=== PATIENT | female | born 1985 | race Caucasian/White ===

== ENCOUNTER 2020-07-16 14:33 | Emergency (ER) | payer MEDICAID, SELFPAY ==
[2020-07-16 15:00] VITALS: BP 158/95; PULSE 75; RESP 18; TEMP 36.8; O2SAT 99; BMI 57.4
--- NOTE | 2020-07-16 15:13 | HMH.EDUTC ---
[facility] Clinical Impression: Encounter for laboratory testing for COVID-19 virus, Exposure to COVID-19 virus Disposition: Home, Self-Care Condition on Discharge: Good Instructions: Preventing the Spread of Coronavirus Discharge Instructions Additional Instructions: *Monitor Temp, Over the counter Motrin or Tylenol as directed/as needed Tylenol every 4 hours and Motrin every 6 hours (as long as your family doctor has told you that you can take it) for fever or pain. and straight to ER if unable to lower temp less than 101.0 after medication given *Warm salt water gargles may help to soothe the throat *Throat Lozenges *Warm fluids like tea with honey may help to soothe the throat *Sleep elevated *Humidifier/Vaporizer Follow up IMMEDIATELY for new or worsening symptoms or no Noticeable improvement over the next 48-72 hours. 911 for difficulty breathing or swallowing You was tested for today for COVID19 your test result should be back in the next 24-48 hours, you may call back on Monday to see if your test results are back and the result You was given a handout with instructions for Self Quarantine and Self isolation for while you wait on test results and what to do if they are positive Referrals: David Ho [Primary Care Provider] - As needed Forms: Work/School Release Time of Disposition: 15:14 Medical Decision Making - Davy Inquiry Pt receiving controlled substance: No Davy was queried for this patient: No Vital Signs: 07/16/20 15:00 Temperature 98.2 F Temperature Source Oral Pulse Rate [Right Brachial] 75 Respiratory Rate 18 Blood Pressure [Right Arm] 158/95 H Blood Pressure Mean [Right Arm] 116 Blood Pressure Source [Right Arm] Automatic Cuff Blood Pressure Position [Right Arm] Sitting 02 Sat by Pulse Oximetry 99 Oxygen Delivery Method Room Air Orders (Tests/Meds): ORDERS Category Date Time Status Covid-19 Nasal PCR Sendout [facility] 07/16/20 14:43 Ordered [facility] [place] - General Stated complaint: Covid test Time Seen by Provider: 07/16/20 15:13 Mode of Arrival: Ambulatory Source of Information: Patient Limitations: No Limitations Description of Symptoms (Recalled from Triage Doc. by RN): PATIENT REQUESTING COVID TEST D/T EXPOSURE; C/O COUGH HEENT Symptoms (Recalled from RN notes): No Resp Symptoms (Recalled from RN notes): Yes Skin Symptoms (Recalled from RN notes): No MS Symptoms (Recalled from RN notes): No Functional Status (Recalled from RN notes): WNL - History of Present Illness Provider Complaint: Patient state that she was around her sister in law that recently tested positive for COVID and it was recommended by the Health Dept to quarantine and her work required her to get tested States that she has had a little cough but no other symtpoms - Related Data Home Medications Medication Instructions Recorded Confirmed Amlodipine Besylate [Amlodipine 10 mg PO DAILY 09/22/19 10/12/19 10mg Tab] Hydroxychloroquine Sulfate 400 mg PO DAILY 09/22/19 10/12/19 [Plaquenil 200mg tablet] Sertraline HCl [Zoloft] 150 mg PO DAILY 09/22/19 10/12/19 lisinopriL [Lisinopril 5mg 5 mg PO DAILY 09/22/19 10/12/19 Tablet] Previous Rx's Medication Instructions Recorded Oseltamivir Phosphate [Tamiflu 75 mg PO BID #10 cap 10/12/19 75mg Capsule] Allergies Allergy/AdvReac Type Severity Reaction Status Date / Time morphine Allergy Verified 10/12/19 13:58 - Worker's Comp Is this a Worker's Comp case?: No [facility] History - Hepatitis A Screen Drug use history?: No High risk sexual behaviors?: No History of sexually transmitted infection?: No Currently employed?: No Childcare worker?: No Do you have indoor plumbing?: Yes Do you have electricity?: Yes Attestation statement:: This patient has been screened for Hepatitis A risk factors. Medical History: Denies:: Diabetes Mellitus Type 1, Diabetes Mellitus Type 2 - Social History Smo
[2020-07-16 15:16] VITALS: BP 158/95; PULSE 75; RESP 18; TEMP 36.8; O2SAT 99
[2020-07-16 23:32] LABS: Adenovirus,PCR Not Detected (NotDetected); Bordetella Pertussis Not Detected (NotDetected); Chlamydophila Pneumoniae, PCR Not Detected (NotDetected); Coronavirus 19, PCR Not Detected (NotDetected); Coronavirus 229E Not Detected (NotDetected); Coronavirus NL63 Not Detected (NotDetected); Coronavirus OC43 Not Detected (NotDetected); Coronovirus HKU1,PCR Not Detected (NotDetected); Human Metapneumovirus Not Detected (NotDetected); Influenza A, PCR Not Detected (NotDetected); Influenza AH1, 2009 Not Detected (NotDetected); Influenza AH1, PCR Not Detected (NotDetected); Influenza AH3,PCR Not Detected (NotDetected); Influenza B, PCR Not Detected (NotDetected); Mycoplasma Pneumoniae, PCR Not Detected (NotDetected); Parainfluenza 1, PCR Not Detected (NotDetected); Parainfluenza 2, PCR Not Detected (NotDetected); Parainfluenza 3, PCR Not Detected (NotDetected); Parainfluenza 4, PCR Not Detected (NotDetected); Respiratory Syncytial Virus Not Detected (NotDetected); Rhinovirus/Enterovirus Not Detected (NotDetected)
== END 2020-07-16 15:20 | disposition home or self-care (01) ==
PROVIDERS: Emergency Provider Nurse Practitioner; PCP Pediatrics
DX: Z20.828 Contact with and (suspected) exposure to other viral communicable diseases (principal); R05 Cough; I10 Essential (primary) hypertension; J45.909 Unspecified asthma, uncomplicated; Z79.899 Other long term (current) drug therapy; Z88.5 Allergy status to narcotic agent
CPT/HCPCS: 87581; 87633; 87798; 99201; U0003

== ENCOUNTER 2020-09-06 15:35 | Emergency (ER) | payer MEDICAID, SELFPAY ==
[2020-09-06 16:00] VITALS: BP 136/88; PULSE 85; RESP 18; TEMP 36.7; O2SAT 100; BMI 57.3
--- NOTE | 2020-09-06 16:16 | HMH.EDUTC ---
[facility] [place]ression: Lupus Right otitis media Qualifiers: Otitis media type: suppurative Chronicity: acute Recurrence: non-recurrent Spontaneous tympanic membrane rupture: without spontaneous rupture Qualified Code(s): H66.001 - Acute suppurative otitis media without spontaneous rupture of ear drum, right ear Disposition: Home, Self-Care Condition on Discharge: Good Instructions: DI for Systemic Lupus Erythematosus Prescriptions: Amoxicillin [Amoxicillin 875MG Tab] 875 mg PO Q12H #20 tab Transmission Status: Pending to [facility] # predniSONE [Prednisone 20mg Tab] 20 mg PO BID 5 Days #10 tab Transmission Status: Pending to [employer] [employer] # Referrals: David Ho [Primary Care Provider] - Time of Disposition: 16:24 Medical Decision Making - Davy Inquiry Pt receiving controlled substance: No Vital Signs: 09/06/20 16:00 Temperature 98.0 F Temperature Source Oral Pulse Rate [Radial] 85 Respiratory Rate 18 Blood Pressure [Right Arm] 136/88 Blood Pressure Mean [Right Arm] 104 Blood Pressure Source [Right Arm] Automatic Cuff Blood Pressure Position [Right Arm] Sitting 02 Sat by Pulse Oximetry 100 Oxygen Delivery Method Room Air [facility] [place] - General Stated complaint: R ear/face pain Time Seen by Provider: 09/06/20 16:16 Mode of Arrival: Ambulatory Source of Information: Patient Limitations: No Limitations Description of Symptoms (Recalled from Triage Doc. by RN): EARS HURTING AND RIGHT SIDE OF FACE HEENT Symptoms (Recalled from RN notes): Yes Resp Symptoms (Recalled from RN notes): No Skin Symptoms (Recalled from RN notes): No MS Symptoms (Recalled from RN notes): No Functional Status (Recalled from RN notes): WNL - History of Present Illness Provider Complaint: Right ear pain radiating into face X 3 days. No fever. No rash. H/O Lupus. Has sores in her mouth and nose and hands are swollen and painful. Some pain with opening of jaw. Onset (ago): day(s) (3) Location: face Relieving factors: none Exacerbating factors: none Associated symptoms: denies other symptoms Treatments prior to arrival: none - Related Data Home Medications Medication Instructions Recorded Confirmed Amlodipine Besylate [Amlodipine 10 mg PO DAILY 09/22/19 10/12/19 10mg Tab] Hydroxychloroquine Sulfate 400 mg PO DAILY 09/22/19 10/12/19 [Plaquenil 200mg tablet] Sertraline HCl [Zoloft] 150 mg PO DAILY 09/22/19 10/12/19 lisinopriL [Lisinopril 5mg 5 mg PO DAILY 09/22/19 10/12/19 Tablet] Previous Rx's Medication Instructions Recorded Oseltamivir Phosphate [Tamiflu 75 mg PO BID #10 cap 10/12/19 75mg Capsule] Amoxicillin [Amoxicillin 875MG 875 mg PO Q12H #20 tab 09/06/20 Tab] predniSONE [Prednisone 20mg 20 mg PO BID 5 Days #10 tab 09/06/20 Tab] Allergies Allergy/AdvReac Type Severity Reaction Status Date / Time morphine Allergy Verified 10/12/19 13:58 - Worker's Comp Is this a Worker's Comp case?: No [facility] History - Hepatitis A Screen Drug use history?: No High risk sexual behaviors?: No History of sexually transmitted infection?: No Currently employed?: No Childcare worker?: No Do you have indoor plumbing?: Yes Do you have electricity?: Yes Attestation statement:: This patient has been screened for Hepatitis A risk factors. I have reviewed the patient's past medical history: Yes Medical History: Denies:: Diabetes Mellitus Type 1, Diabetes Mellitus Type 2 - Social History Smoking Status: Never smoker Alcohol Intake: never Occupational Status: other Housing: house Household Members: spouse ROS Obtained: Yes All systems reviewed & no additional complaints - ENT Ears, Nose, Mouth, and Throat: Reports otalgia, Reports mouth lesions - Musculoskeletal Musculoskeletal: Reports stiffness Physical Exam - General General appearance: alert, in no apparent distress - Head Head exam: normocephalic
[2020-09-06 16:30] VITALS: BP 136/88; PULSE 85; RESP 18; TEMP 36.7; O2SAT 100
== END 2020-09-06 16:31 | disposition home or self-care (01) ==
PROVIDERS: Emergency Provider Physician Assistant; PCP Pediatrics
DX: H66.001 Acute suppurative otitis media without spontaneous rupture of ear drum, right ear (principal); M32.9 Systemic lupus erythematosus, unspecified; I10 Essential (primary) hypertension; Z79.899 Other long term (current) drug therapy
CPT/HCPCS: 99201

== ENCOUNTER 2020-11-30 04:07 | Emergency (ER) | payer MEDICAID, SELFPAY ==
[2020-11-30] VITALS (8 sets, daily range): BP systolic 143–178; BP diastolic 77–95; PULSE 63–82; RESP 16–18; TEMP 36.8; O2SAT 97–100; BMI 57.2
--- NOTE | 2020-11-30 04:25 | ECG_ITS ---
APPROVED REPORT Exam: Resting ECG HR:73 bpm ECG Measurements Heart Rate 73 AXES SC 148 P 52 QRSd 100 QRS 24 QT 410 T 3 QTc 451 Conclusion Normal sinus rhythm Low voltage QRS Borderline ECG Electronically signed by : Perez Colon, 11/30/2020 17:21:23
--- NOTE | 2020-11-30 04:33 | CT_ITS ---
PROCEDURE: CT ANGIO CHEST CLINCIAL INDICATION: Chest pain, right upper quadrant pain COMPARISON: No exams were available for comparison TECHNIQUE: IV Contrast: 70ML Isovue 370 Axial images obtained with sagittal and coronal reformats. All CT scans at the facility use one or more dose reduction, viz: automated exposure control, ma/kV adjustment per patient size (including targeted exams where dose is matched to indication, i.e. head), or iterative reconstruction technique. FINDINGS: HEART AND MEDIASTINAL STRUCTURES: No evidence of pulmonary embolus, aortic aneurysm, or aortic dissection. LUNGS AND PLEURAL SPACES: 3 mm left lower lobe nodule image 49. Scattered calcified punctate nodular opacities. 3 mm noncalcified nodule right perihilar region image 31. No lobar consolidation or collapse. BONY STRUCTURES: Kyphosis of the thoracic with wedge contour lower thoracic spine vertebral bodies which may be chronic. UPPER ABDOMEN: Prior gastric bypass surgery and cholecystectomy. ADDITIONAL FINDINGS: No other significant abnormalities. IMPRESSION: No evidence of pulmonary embolus, aortic aneurysm, or aortic dissection. Scattered calcified and noncalcified pulmonary nodules which may be related to old granulomatous disease. Stability may be confirmed with follow-up Dictated by: Raji Romero MD 11/30/2020 06:38 Raji Romero MD in [facility] 11/30/2020 06:38
--- NOTE | 2020-11-30 04:33 | CT_ITS ---
PROCEDURE: CT ABDOMEN PELVIS W CON CLINICAL INDICATION: RUQ pain COMPARISON: No exams were available for comparison TECHNIQUE: IV Contrast: 75ML Isovue 370 Oral Contrast None Axial images obtained with sagittal and coronal reformats. All CT scans at the facility use one or more dose reduction, viz: automated exposure control, ma/kV adjustment per patient size (including targeted exams where dose is matched to indication, i.e. head), or iterative reconstruction technique. FINDINGS: LOWER THORAX: No acute finding ABDOMEN & PELVIS: Evaluation limited secondary to patient's body habitus. Status post prior gastric bypass surgery. Prior cholecystectomy. Prominent right hepatic lobe measuring 24 cm longitudinal. Mild splenomegaly at 14 cm. Nodular involvement of the left adrenal gland nonspecific measuring 17 mm. No renal or ureteral calculi. No hydronephrosis. There are few mildly prominent retroperitoneal lymph nodes and small mesenteric lymph nodes. These are nonspecific. No evidence of appendicitis. There is an 8 cm right ovarian cyst. No free pelvic fluid. Postsurgical changes anterior abdominal wall IMPRESSION: 1. 8 cm cystic right adnexal mass suggestive of ovarian cyst. Pelvic ultrasound may provide further evaluation. 2. Hepatosplenomegaly 3. Other nonacute findings as described above. Dictated by: Raji Romero MD 11/30/2020 06:45 Raji Romero MD in [facility] 11/30/2020 06:45
--- NOTE | 2020-11-30 04:33 | XR_ITS ---
PROCEDURE: XR CHEST 2V CLINICAL HISTORY: chest pain COMPARISON: No exams were available for comparison FINDINGS: The cardiomediastinal silhouette and pulmonary vascularity are within normal limits. The lungs are clear without infiltrates, suspicious nodules, or pleural effusions. Thoracic kyphosis with degenerative change in the midthoracic spine. Minimal wedge contour involves the lower thoracic spine vertebral bodies and may be acquired. IMPRESSION: No acute findings. Dictated by: Raji Romero MD 11/30/2020 05:57 Raji Romero MD in [facility] 11/30/2020 05:57
--- NOTE | 2020-11-30 04:36 | CT_ITS ---
PROCEDURE: CT SINUS WO CON CLINICAL HISTORY: right face pain COMPARISON: No exams were available for comparison TECHNIQUE: Axial images obtained with sagittal and coronal reformats. All CT scans at the facility use one or more dose reduction, viz: automated exposure control, ma/kV adjustment per patient size (including targeted exams where dose is matched to indication, i.e. head), or iterative reconstruction technique. FINDINGS: Mucosal thickening is present in the right maxillary sinus. There is adjacent soft tissue gas in the region the right middle turbinate. This could be related to trapped gas and mucus. Gas within an infected turbinates is an additional consideration. Direct visualization may provide further evaluation. There is a sclerotic focus in the right maxilla inferior to the right maxillary sinus possibly related to an impacted tooth. There is mild rightward nasal septal deviation. No other significant anomalies apparent. IMPRESSION: 1. Right maxillary sinus inflammatory changes with mucosal thickening. 2. Soft tissue gas in the region of the right middle turbinate. This could be related to trapped gas and mucus. Gas within an infected turbinates is an additional consideration. Direct visualization may provide further evaluation. 3. There is a sclerotic focus in the right maxilla inferior to the right maxillary sinus possibly related to an impacted tooth. 4. There is mild rightward nasal septal deviation Dictated by: Raji Romero MD 11/30/2020 06:51 Raji Romero MD in [facility] 11/30/2020 06:52
[2020-11-30 04:42] LABS: Basophils % 0.6 % (0.1-2.0); Eosinophils # 0.2 K/mm3 (0.0-0.4); Eosinophils % 2.3 % (0.1-12.0); Hematocrit 37.4 % (37.0-47.0); Hemoglobin 12.2 g/dL (12.2-16.2); Lymphocytes # 1.9 K/mm3 (0.7-4.5); Lymphocytes % 27.7 % (10-50); Mean Corpuscular HGB Conc 32.7 g/dL (31.8-35.4); Mean Corpuscular Hemoglobin 28.7 pg (27.0-31.2); Mean Corpuscular Volume 87.7 fl (81-99); Mean Platelet Volume 7.7 fl (7.4-10.4); Monocytes # 0.4 K/mm3 (0.1-1.0); Monocytes % 6.4 % (1.7-9.3); Neutrophils # 4.3 K/mm3 (1.8-7.8); Neutrophils % 62.9 % (37.0-80.0); Platelet Count 289 K/mm3 (142-424); Red Blood Count 4.27 M/mm3 (4.20-5.40); Red Cell Distribution Width 13.9 % (11.5-17.5); White Blood Count 6.8 K/mm3 (4.8-10.8)
[2020-11-30 04:43] LABS: Microscopic, Urine URINE MICROSCOPIC (MICROSCOPIC)
[2020-11-30 04:49] LABS: Alanine Aminotransferase 20 U/L (12-78); Albumin Level 3.8 g/dl (3.5-5.0); Albumin/Globulin Ratio 1.3 (1.1-1.8); Alkaline Phosphatase 113 U/L (38-126); Amylase 60 U/L (30-110); Anion Gap 7.6 mEq/L (5-15); Aspartate Amino Transferase 23 U/L (14-36); Bilirubin,Total 0.3 mg/dl (0.2-1.3); Blood Urea Nitrogen 18 mg/dl (7-17); Calcium 8.6 mg/dl (8.4-10.2); Carbon Dioxide 25 mmol/L (22.0-30.0); Chloride 109 mmol/L (98-107); Creatinine Clearance Estimated 95 mL/min (50-200); Estimated Glomerular Filt Rate 81 ml/min (>60); GFR (African American) 98 ML/MIN (>60); Globulin 2.9 g/dL (1.3-3.2); Glucose 90 mg/dl (74-100); Lipase 94 U/L (23-300); Potassium 3.6 mmoL/L (3.5-5.1); Sodium 138 mmol/L (136-145); Total Protein,Serum 6.7 g/dl (6.3-8.2)
[2020-11-30 04:53] LABS: Appearance,Urine CLEAR (Clear); Bilirubin,Urine Negative (Negative); Blood, Urine Negative (Negative); Color,Urine YELLOW (Yellow); Glucose,Urine (UA) Negative (Negative); Ketones,Urine Negative (Negative); Leukocyte Esterase,Urine Negative (Negative); Nitrate,Urine Negative (Negative); Protein,Urine Negative (Negative); Urobilinogen,Urine 0.2 EU/dl (0.2)
[2020-11-30 04:54] LABS: C-Reactive Protein 3.7 mg/L (0-4)
[2020-11-30 04:55] LABS: Adenovirus,PCR Not Detected (NotDetected); Bordetella Pertussis Not Detected (NotDetected); Chlamydophila Pneumoniae, PCR Not Detected (NotDetected); Coronavirus 19, PCR Not Detected (NotDetected); Coronavirus 229E Not Detected (NotDetected); Coronavirus NL63 Not Detected (NotDetected); Coronavirus OC43 Not Detected (NotDetected); Coronovirus HKU1,PCR Not Detected (NotDetected); Human Metapneumovirus Not Detected (NotDetected); Influenza A, PCR Not Detected (NotDetected); Influenza AH1, 2009 Not Detected (NotDetected); Influenza AH1, PCR Not Detected (NotDetected); Influenza AH3,PCR Not Detected (NotDetected); Influenza B, PCR Not Detected (NotDetected); Mycoplasma Pneumoniae, PCR Not Detected (NotDetected); Parainfluenza 1, PCR Not Detected (NotDetected); Parainfluenza 2, PCR Not Detected (NotDetected); Parainfluenza 3, PCR Not Detected (NotDetected); Parainfluenza 4, PCR Not Detected (NotDetected); Respiratory Syncytial Virus Not Detected (NotDetected)
--- NOTE | 2020-11-30 05:01 | HMH.EDGENADL ---
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 The time I documented below is in addition to time spent performing reported procedures but includes the following listed in this critical care notation. Medical Decision Making - Medical Records Medical records reviewed: Yes: I reviewed the patient's medical records. - Davy Inquiry Pt receiving controlled substance: No Vital Signs: 11/30/20 04:18 11/30/20 05:11 11/30/20 05:58 Temperature 98.2 F Temperature Source Oral Pulse Rate 69 68 Pulse Rate [Right] 82 Respiratory Rate 18 Blood Pressure Blood Pressure [Right Arm] 153/95 H Blood Pressure Mean Blood Pressure Mean [Right Arm] 114 Blood Pressure Source [Right Arm] Automatic Cuff Blood Pressure Position [Right Arm] Supine 02 Sat by Pulse Oximetry 100 97 100 Oxygen Delivery Method Room Air 11/30/20 05:59 11/30/20 06:00 11/30/20 06:30 Temperature Temperature Source Pulse Rate 69 63 65 Pulse Rate [Right] Respiratory Rate 16 Blood Pressure 143/77 H 152/87 H 157/88 H Blood Pressure [Right Arm] Blood Pressure Mean 99 104 111 Blood Pressure Mean [Right Arm] Blood Pressure Source [Right Arm] Blood Pressure Position [Right Arm] 02 Sat by Pulse Oximetry 99 99 98 Oxygen Delivery Method Room Air 11/30/20 07:43 Temperature Temperature Source Pulse Rate Pulse Rate [Right] 69 Respiratory Rate 16 Blood Pressure Blood Pressure [Right Arm] 178/93 H Blood Pressure Mean Blood Pressure Mean [Right Arm] 121 Blood Pressure Source [Right Arm] Blood Pressure Position [Right Arm] Sitting 02 Sat by Pulse Oximetry 98 Oxygen Delivery Method Room Air - Lab Data Lab results reviewed: Yes: I reviewed the patient's lab results. Lab Results 11/30/20 04:22: Urine Color Yellow, Urine Appearance Clear, Urine pH 6.0, Ur Specific [place] 1.010, Urine Protein Negative, Urine Glucose (UA) Negative, Urine Ketones Negative, Urine Blood Negative, Urine Nitrate Negative, Urine Bilirubin Negative, Urine Urobilinogen 0.2, Ur Leukocyte Esterase Negative, Ur Squamous Epith Cells 5-10 11/30/20 04:22: WBC 6.8, RBC 4.27, Hgb 12.2, Hct 37.4, MCV 87.7, MCH 28.7, MCHC 32.7, RDW 13.9, Plt Count 289, MPV 7.7, Neut % (Auto) 62.9, Lymph % (Auto) 27.7, Baker % (Auto) 6.4, Eos % (Auto) 2.3, Baso % (Auto) 0.6, Neut # (Auto) 4.3, Lymph # (Auto) 1.9, Baker # (Auto) 0.4, Eos # (Auto) 0.2, Baso # (Auto) 0.0, ESR 19 11/30/20 04:22: Sodium 138, Potassium 3.6, Chloride 109 H, Carbon Dioxide 25, Anion Gap 7.6, BUN 18 H, Creatinine 0.80, Estimated Creat Clear 95, Estimated GFR 81, Est GFR ( Amer) 98, Glucose 90, Calcium 8.6, Total Bilirubin 0.3, AST 23, ALT 20, Alkaline Phosphatase 113, Troponin I < 0.01, C-Reactive Protein 3.7, Total Protein 6.7, Albumin 3.8, Globulin 2.9, Albumin/Globulin Ratio 1.3, Amylase 60, Lipase 94, Procalcitonin 0.041 11/30/20 04:50: Chlamy pneumoniae PCR Not detected, Adenovirus (PCR) Not detected, B. pertussis DNA (PCR) Not detected, Coronavirus OC43 (PCR) Not detected, Coronavirus HKU1 (PCR) Not detected, Coronavirus 229E (PCR) Not detected, SARS-CoV-2 (PCR) Not detected, Coronavirus NL63 (PCR) Not detected, Human Metapneumovir PCR Not detected, Influenza A (H1) PCR Not detected, Influ A (H1N1/09) PCR Not detected, Influenza A (H3) PCR Not detected, In
[2020-11-30 05:04] LABS: Troponin I < 0.01 ng/ml (0.00-0.034)
[2020-11-30 05:08] LABS: Procalcitonin 0.041 ng/mL (0.0-2.0)
[2020-11-30 05:09] LABS: Erythrocyte Sedimentation Rate 19 mm/hr (0-20)
--- NOTE | 2020-11-30 06:20 | PC.NURSE ---
Pelvic U.S. ordered and Radiology Notified to confirm possible ovarian torsion
--- NOTE | 2020-11-30 06:20 | US_ITS ---
PROCEDURE: US TRANSVAGINAL CLINICAL INDICATION: ovarian cyst Follow-up ovarian cyst COMPARISON: No exams were available for comparison FINDINGS: UTERUS: 10cm x 7cmx 5cm with a combined endometrial thickness of 5.8mm LEFT OVARY: [id number] with a volume of 6.9ml. RIGHT OVARY: [id number] with a volume of 306ml. 9 x 6 cm right ovarian cyst noted. There is a thin linear septation anteriorly. There does appear to be blood flow to the right ovary. No cul-de-sac fluid evident. IMPRESSION: 9 cm septated right ovarian cyst. There is blood flow around the periphery of the cyst. No evidence of torsion. Suggest follow-up ultrasound to confirm resolution of the cyst. Dictated by: Raji Romero MD 11/30/2020 09:52 Raji Romero MD in [facility] 11/30/2020 09:52
[2020-11-30 06:29] LABS: Rhinovirus/Enterovirus Detected (NotDetected)
== END 2020-11-30 08:30 | disposition home or self-care (01) ==
PROVIDERS: Emergency Provider Emergency Medicine; PCP Pediatrics
DX: B34.9 Viral infection, unspecified (principal); R09.1 Pleurisy; N83.201 Unspecified ovarian cyst, right side
CPT/HCPCS: 70486; 71046; 71275; 74177; 76830; 80053; 81001; 82150; 83690; 84145; 84484; 85025; 85651; 86140; 87581; 87633; 87798; 93005; 96365; 96375; 96376; 99284; J2405; Q9967

== ENCOUNTER → 2021-02-14 16:59 | Outpatient (CLI) | payer MEDICAID, SELFPAY | PROVIDERS: PCP Pediatrics; Visit Provider Obstetrics & Gynecology Gynecology | DX: Z01.812 Encounter for preprocedural laboratory examination (principal); Z11.52 Encounter for screening for COVID-19 | CPT/HCPCS: U0003 ==

== ENCOUNTER 2021-03-20 19:10 | Emergency (ER) | payer MEDICAID, SELFPAY ==
[2021-03-20 19:11] VITALS: BP 177/84; PULSE 106; RESP 20; TEMP 36.9; O2SAT 100; BMI 58.7
--- NOTE | 2021-03-20 20:02 | XR_ITS ---
PROCEDURE INFORMATION: Exam: XR Chest Exam date and time: 03/20/2021 8:02 PM Age: 35 years old Clinical indication: Pain; Chest pressure; Patient HX: Hysterectomy 4 weeks ago; Additional info: Chest pain TECHNIQUE: Imaging protocol: XR of the chest. Views: 2 views. COMPARISON: CR XR CHEST 2V 11/30/2020 5:14 AM FINDINGS: Lungs: Mild central vascular congestion, without overt pulmonary edema. Mild linear bibasilar atelectasis. No focal airspace consolidation. Unchanged calcified nodule in the right lower lobe measuring 4 mm. Pleural spaces: No pleural effusion. No pneumothorax. Heart/Mediastinum: Normal heart size. Mild aortic atherosclerosis. Bones/joints: Scattered degenerative changes. Chronic minimal to mild anterior wedging thoracic vertebral bodies. IMPRESSION: Mild bibasilar atelectasis.
--- NOTE | 2021-03-20 20:02 | ECG_ITS ---
APPROVED REPORT Exam: Resting ECG HR:102 bpm ECG Measurements Heart Rate 102 AXES MT 168 P 53 QRSd 94 QRS 5 QT 364 T -40 QTc 474 Conclusion Sinus tachycardia Nonspecific ST and T wave abnormality Abnormal ECG Electronically signed by : Perez Colon, 03/21/2021 13:47:47
[2021-03-20 20:03] VITALS: BP 129/73; PULSE 87; RESP 21; O2SAT 98
[2021-03-20 20:11] LABS: Basophils # 0.1 K/mm3 (0-0.2); Basophils % 1.3 % (0.1-2.0); Eosinophils # 0.5 K/mm3 (0.0-0.4); Hematocrit 37.4 % (37.0-47.0); Hemoglobin 12.4 g/dL (12.2-16.2); Lymphocytes % 20.5 % (10-50); Mean Corpuscular HGB Conc 33.2 g/dL (31.8-35.4); Mean Corpuscular Hemoglobin 27.7 pg (27.0-31.2); Mean Corpuscular Volume 83.2 fl (81-99); Mean Platelet Volume 8.3 fl (7.4-10.4); Monocytes # 0.7 K/mm3 (0.1-1.0); Monocytes % 6.7 % (1.7-9.3); Neutrophils # 6.5 K/mm3 (1.8-7.8); Neutrophils % 66.6 % (37.0-80.0); Platelet Count 298 K/mm3 (142-424); Red Cell Distribution Width 13.7 % (11.5-17.5); White Blood Count 9.8 K/mm3 (4.8-10.8)
[2021-03-20 20:14] LABS: Anion Gap 12.7 mEq/L (5-15); Blood Urea Nitrogen 14 mg/dl (7-17); Calcium 8.7 mg/dl (8.4-10.2); Carbon Dioxide 25 mmol/L (22.0-30.0); Chloride 107 mmol/L (98-107); Creatinine Clearance Estimated 84 mL/min (50-200); Estimated Glomerular Filt Rate 71 ml/min (>60); GFR (African American) 86 ML/MIN (>60); Glucose 69 mg/dl (74-100); HCG Qualitative, Serum Negative (Negative); Potassium 3.7 mmoL/L (3.5-5.1); Sodium 141 mmol/L (136-145)
[2021-03-20 20:33] LABS: Troponin I < 0.01 ng/ml (0.00-0.034)
[2021-03-20 21:55] LABS: C-Reactive Protein 23.5 mg/L (0-4)
[2021-03-20 22:09] LABS: Procalcitonin 0.049 ng/mL (0.0-2.0)
[2021-03-20 22:13] LABS: Erythrocyte Sedimentation Rate 26 mm/hr (0-20)
[2021-03-21 00:10] LABS: Troponin I < 0.01 ng/ml (0.00-0.034)
--- NOTE | 2021-03-21 00:25 | HMH.EDCP ---
ED Disposition Clinical Impression: Chest pain Qualifiers: Chest pain type: precordial pain Qualified Code(s): R07.2 - Precordial pain Disposition: Home, Self-Care Condition on Discharge: Good Instructions: DI for Chest Pain Additional Instructions: see card monday am and return if any sx Referrals: David Ho [Primary Care Provider] - Slim Heart MD [Staff Physician] - - Critical Care Critical Care Time: No Attestation: On 03/20/21, the high probability of a clinically significant, sudden or life threatening deterioration of the following system(s) required my full and direct attention, intervention and personal management. The time I documented below is in addition to time spent performing reported procedures but includes the following listed in this critical care notation. Medical Decision Making - Medical Records Medical records reviewed: Yes: I reviewed the patient's medical records. - Davy Inquiry Pt receiving controlled substance: No Vital Signs: 03/20/21 19:11 03/20/21 20:03 Temperature 98.4 F Temperature Source Oral Pulse Rate 87 Pulse Rate [Right] 106 H Respiratory Rate 20 21 Blood Pressure 129/73 Blood Pressure [Right Arm] 177/84 H Blood Pressure Mean [Right Arm] 115 Blood Pressure Source [Right Arm] Automatic Cuff Blood Pressure Position [Right Arm] Supine 02 Sat by Pulse Oximetry 100 98 Oxygen Delivery Method Room Air - Lab Data Lab results reviewed: Yes: I reviewed the patient's lab results. Lab Results 03/20/21 19:13: WBC 9.8, RBC 4.50, Hgb 12.4, Hct 37.4, MCV 83.2, MCH 27.7, MCHC 33.2, RDW 13.7, Plt Count 298, MPV 8.3, Neut % (Auto) 66.6, Lymph % (Auto) 20.5, Millard % (Auto) 6.7, Eos % (Auto) 5.0, Baso % (Auto) 1.3, Neut # (Auto) 6.5, Lymph # (Auto) 2.0, Millard # (Auto) 0.7, Eos # (Auto) 0.5 H, Baso # (Auto) 0.1 03/20/21 19:13: Sodium 141, Potassium 3.7, Chloride 107, Carbon Dioxide 25, Anion Gap 12.7, BUN 14, Creatinine 0.90, Estimated Creat Clear 84, Estimated GFR 71, Est GFR ( Amer) 86, Glucose 69 L, Calcium 8.7, Troponin I < 0.01 03/20/21 19:13: Serum HCG, Qual Negative 03/20/21 19:13: ESR 26 H 03/20/21 19:13: C-Reactive Protein 23.5 H, Procalcitonin 0.049 03/20/21 23:23: Troponin I < 0.01 Result diagrams: 03/20/21 19:13 03/20/21 19:13 Orders (Tests/Meds): ED MEDICATIONS Discontinued Medications Generic Name Dose Route Start Last Admin Trade Name Johnny PRN Reason Stop Dose Admin Aspirin 324 mg 03/20/21 21:01 03/20/21 23:05 Aspirin 81mg Chewable Tablet PO 03/20/21 21:02 324 mg ONCE ONE Administration ORDERS Category Date Time Status Troponin I Q3H Lab 03/21/21 02:15 Ordered - Radiology Data #1 Image(s): Chest Image Reviewed: Yes I reviewed the patient's radiology image Preliminary Findings: Normal/NAD - ECG Data Tracing #1 Normal Sinus Rhythm: Yes Ischemic changes: non-specific ST-T wave changes Medical Decision Narrative: pt with chest pain and at baseline with stable trop and will return if sx persist and see card monday Chest Pain HPI - General Chief Complaint: Chest Pain Stated Complaint: Chest pain Time Seen by Provider: 03/20/21 21:00 Mode of Arrival: Ambulatory Source of Information: Patient, Significant Other, Medical Record Limitations: No Limitations Description of Symptoms (Recalled from ER Triage Doc. by RN): Pt states she started having pain to her left Jaw, shoulder and chest about 30 minutes ago. Pt has SOA as well. - History of Present Illness HPI narrative: pt with acute onset of lt jaw pain and lt upper ext pain with chest pain described as sharp - has htn and no known ht dis - no diabetes and no tob and lasted about 1 hr - MD complaint: chest pain indicative of cardiac Onset (ago): hour(s) Duration: now resolved Activity at onset: during rest Pain location: left chest Severity: moderate Quality: sharp Risk Factors for CAD: Hypertension, Family Hx of CAD Tr
[2021-03-21 00:42] VITALS: BP 133/76; PULSE 73; RESP 16; TEMP 36.9; O2SAT 99
== END 2021-03-21 00:47 | disposition home or self-care (01) ==
PROVIDERS: Emergency Medicine; Emergency Provider Emergency Medicine; PCP Pediatrics
DX: R07.2 Precordial pain (principal)
CPT/HCPCS: 71046; 80048; 84145; 84484; 84703; 85025; 85651; 86140; 93005; 99282

== ENCOUNTER 2021-03-21 16:10 | Emergency (ER) | payer MEDICAID, SELFPAY ==
--- NOTE | 2021-03-21 16:08 | ECG_ITS ---
APPROVED REPORT Exam: Resting ECG HR:81 bpm ECG Measurements Heart Rate 81 AXES NH 148 P 42 QRSd 96 QRS 20 QT 416 T 3 QTc 483 Conclusion Normal sinus rhythm Prolonged QT Abnormal ECG Electronically signed by : Perez Colon, 03/24/2021 21:44:33
[2021-03-21 16:14] VITALS: BP 120/61; PULSE 84; RESP 16; TEMP 36.9; O2SAT 100; BMI 58.7
--- NOTE | 2021-03-21 17:04 | CT_ITS ---
PROCEDURE INFORMATION: Exam: CT Angiography Neck With Contrast Exam date and time: 03/21/2021 5:04 PM Age: 35 years old Clinical indication: Numbness; Additional info: Dizziness, numbness, left jaw pain TECHNIQUE: Imaging protocol: Computed tomography angiography of the neck with contrast. 3D rendering (Not supervised by radiologist): MIP and/or 3D reconstructed images were created by the technologist. Radiation optimization: All CT scans at this facility use at least one of these dose optimization techniques: automated exposure control; mA and/or kV adjustment per patient size (includes targeted exams where dose is matched to clinical indication); or iterative reconstruction. Contrast material: ISOVUE; Contrast volume: 100 ml; Contrast route: INTRAVENOUS (IV); COMPARISON: CT ANGIO CHEST 11/30/2020 5:37 AM FINDINGS: Right common carotid artery: No stenosis. No dissection or occlusion. Right internal carotid artery: No stenosis of the extracranial segment. No dissection or occlusion. Right external carotid artery: No occlusion or stenosis of the origin. Left common carotid artery: No stenosis. No dissection or occlusion. Left internal carotid artery: No stenosis of the extracranial segment. No dissection or occlusion. Left external carotid artery: No occlusion or stenosis of the origin. Right vertebral artery: No stenosis. No dissection or occlusion. Left vertebral artery: No stenosis. No dissection or occlusion. Soft tissues: Normal. No significant soft tissue swelling. Bones/joints: No acute fracture. IMPRESSION: No extracranial arterial significant stenosis or occlusion. REFERENCES: NASCET CRITERIA. The degree of internal carotid artery stenosis is based on NASCET criteria. Normal is no stenosis. Mild is less than 50% stenosis. Moderate is 50-69% stenosis. Severe is 70% to 99% stenosis. Total occlusion is no detectable patent lumen.
--- NOTE | 2021-03-21 17:24 | CT_ITS ---
PROCEDURE INFORMATION: Exam: CT Head Without Contrast Exam date and time: 03/21/2021 5:24 PM Age: 35 years old Clinical indication: Numbness / parasthesia; Left; Additional info: Facial numbness TECHNIQUE: Imaging protocol: Computed tomography of the head without contrast. Radiation optimization: All CT scans at this facility use at least one of these dose optimization techniques: automated exposure control; mA and/or kV adjustment per patient size (includes targeted exams where dose is matched to clinical indication); or iterative reconstruction. COMPARISON: CT SINUS WO CON 11/30/2020 5:25 AM FINDINGS: Brain: Normal. Cerebral ventricles: No ventriculomegaly. Paranasal sinuses: Ethmoid, left sphenoid, and right maxillary sinus disease. Mastoid air cells: Normal as visualized. Bones/joints: Normal. Soft tissues: Unremarkable. IMPRESSION: No acute intracranial abnormality.
--- NOTE | 2021-03-21 17:24 | CT_ITS ---
PROCEDURE INFORMATION: Exam: CT Angiography Head With Contrast, Arteriography Exam date and time: 03/21/2021 5:24 PM Age: 35 years old Clinical indication: Numbness; Additional info: Facial numbness TECHNIQUE: Imaging protocol: Computed tomography angiography of the head with contrast. Exam focused on the arteries. 3D rendering (Not supervised by radiologist): MIP and/or 3D reconstructed images were created by the technologist. Radiation optimization: All CT scans at this facility use at least one of these dose optimization techniques: automated exposure control; mA and/or kV adjustment per patient size (includes targeted exams where dose is matched to clinical indication); or iterative reconstruction. Contrast material: ISOVUE; Contrast volume: 100 ml; Contrast route: INTRAVENOUS (IV); COMPARISON: CT HEAD/BRAIN WO CON 03/21/2021 6:19 PM FINDINGS: ANTERIOR CIRCULATION: Right internal carotid artery: Unremarkable. Intracranial segment is patent with no significant stenosis. No aneurysm. Right middle cerebral artery: Unremarkable. No occlusion or significant stenosis. No aneurysm. Right anterior cerebral artery: Unremarkable. No occlusion or significant stenosis. No aneurysm. Left internal carotid artery: Unremarkable. Intracranial segment is patent with no significant stenosis. No aneurysm. Left middle cerebral artery: Unremarkable. No occlusion or significant stenosis. No aneurysm. Left anterior cerebral artery: Unremarkable. No occlusion or significant stenosis. No aneurysm. POSTERIOR CIRCULATION: Right vertebral artery: Unremarkable. No occlusion or significant stenosis. No aneurysm. Left vertebral artery: Unremarkable. No occlusion or significant stenosis. No aneurysm. Basilar artery: Unremarkable. No occlusion or significant stenosis. No aneurysm. Right posterior cerebral artery: Unremarkable. No occlusion or significant stenosis. No aneurysm. Left posterior cerebral artery: Unremarkable. No occlusion or significant stenosis. No aneurysm. Brain: No definite mass, mass effect, or midline shift. Cerebral ventricles: No ventriculomegaly. Bones/joints: Unremarkable. No acute fracture. Soft tissues: Unremarkable. Paranasal sinuses: Ethmoid, left sphenoid, and right maxillary sinus disease. IMPRESSION: No large vessel significant stenosis or occlusion.
[2021-03-21 18:00] LABS: Troponin I < 0.01 ng/ml (0.00-0.034)
--- NOTE | 2021-03-21 18:07 | PC.NURSE ---
clinic supervisor attempting IV site at this time.
--- NOTE | 2021-03-21 18:16 | PC.NURSE ---
Pt to radiology
[2021-03-21 18:19] LABS: Basophils # 0.1 K/mm3 (0-0.2); Basophils % 0.7 % (0.1-2.0); Eosinophils # 0.3 K/mm3 (0.0-0.4); Eosinophils % 3.7 % (0.1-12.0); Hematocrit 36.3 % (37.0-47.0); Hemoglobin 12.1 g/dL (12.2-16.2); Lymphocytes # 1.8 K/mm3 (0.7-4.5); Lymphocytes % 19.5 % (10-50); Mean Corpuscular HGB Conc 33.4 g/dL (31.8-35.4); Mean Corpuscular Hemoglobin 27.4 pg (27.0-31.2); Mean Corpuscular Volume 81.9 fl (81-99); Mean Platelet Volume 7.4 fl (7.4-10.4); Monocytes # 0.5 K/mm3 (0.1-1.0); Monocytes % 5.5 % (1.7-9.3); Neutrophils # 6.4 K/mm3 (1.8-7.8); Neutrophils % 70.6 % (37.0-80.0); Platelet Count 290 K/mm3 (142-424); Red Blood Count 4.44 M/mm3 (4.20-5.40); Red Cell Distribution Width 13.7 % (11.5-17.5); White Blood Count 9.1 K/mm3 (4.8-10.8)
[2021-03-21 18:23] LABS: Chloride 105 mmol/L (98-107); Sodium 142 mmol/L (136-145)
[2021-03-21 18:24] LABS: Potassium 4.3 mmoL/L (3.5-5.1)
[2021-03-21 18:26] LABS: Alanine Aminotransferase 32 U/L (12-78); Alkaline Phosphatase 146 U/L (38-126); Aspartate Amino Transferase 27 U/L (14-36); Bilirubin,Total 0.5 mg/dl (0.2-1.3); Blood Urea Nitrogen 14 mg/dl (7-17); Creatinine Clearance Estimated 126 mL/min (50-200); Estimated Glomerular Filt Rate 113 ml/min (>60); GFR (African American) 137 ML/MIN (>60)
[2021-03-21 18:27] LABS: Albumin Level 4.3 g/dl (3.5-5.0); Albumin/Globulin Ratio 1.2 (1.1-1.8); Anion Gap 13.3 mEq/L (5-15); Carbon Dioxide 28 mmol/L (22.0-30.0); Globulin 3.5 g/dL (1.3-3.2); Glucose 108 mg/dl (74-100); Total Protein,Serum 7.8 g/dl (6.3-8.2)
--- NOTE | 2021-03-21 20:13 | HMH.EDGENADL ---
ED Disposition Clinical Impression: Chest pain Qualifiers: Chest pain type: unspecified Qualified Code(s): R07.9 - Chest pain, unspecified Disposition: Home, Self-Care Condition on Discharge: Fair Instructions: DI for Atypical Chest Pain Additional Instructions: Please follow-up with your PCP for further management. Please follow-up with cardiology tomorrow as previously scheduled. Referrals: David Ho [Primary Care Provider] - - Critical Care Critical Care Time: No Attestation: On 03/21/21, the high probability of a clinically significant, sudden or life threatening deterioration of the following system(s) required my full and direct attention, intervention and personal management. The time I documented below is in addition to time spent performing reported procedures but includes the following listed in this critical care notation. Medical Decision Making - Medical Records Medical records reviewed: Yes: I reviewed the patient's medical records. - Davy Inquiry Pt receiving controlled substance: No Vital Signs: 03/21/21 16:14 Temperature 98.4 F Temperature Source Oral Pulse Rate [Right] 84 Respiratory Rate 16 Blood Pressure [Right Arm] 120/61 Blood Pressure Mean [Right Arm] 80 02 Sat by Pulse Oximetry 100 Oxygen Delivery Method Room Air - Lab Data Lab Results 03/21/21 17:08: Sodium 142, Potassium 4.3, Chloride 105, Carbon Dioxide 28, Anion Gap 13.3, BUN 14, Creatinine 0.60 D, Estimated Creat Clear 126, Estimated GFR 113, Est GFR ( Amer) 137 D, Glucose 108 H D, Calcium 9.0, Total Bilirubin 0.5, AST 27, ALT 32, Alkaline Phosphatase 146 H, Troponin I < 0.01, Total Protein 7.8, Albumin 4.3, Globulin 3.5 H, Albumin/Globulin Ratio 1.2 03/21/21 18:10: WBC 9.1, RBC 4.44, Hgb 12.1 L, Hct 36.3 L, MCV 81.9, MCH 27.4, MCHC 33.4, RDW 13.7, Plt Count 290, MPV 7.4, Neut % (Auto) 70.6, Lymph % (Auto) 19.5, [place] % (Auto) 5.5, Eos % (Auto) 3.7, Baso % (Auto) 0.7, Neut # (Auto) 6.4, Lymph # (Auto) 1.8, [place] # (Auto) 0.5, Eos # (Auto) 0.3, Baso # (Auto) 0.1 Result diagrams: 03/21/21 18:10 03/21/21 17:08 Orders (Tests/Meds): ED MEDICATIONS Discontinued Medications Generic Name Dose Route Start Last Admin Trade Name Johnny PRN Reason Stop Dose Admin Iopamidol 100 ml 03/21/21 18:24 03/21/21 18:25 Iopamidol-370 (76%);100ml Bottle IV 03/21/21 18:25 100 ml ONCE ONE Administration Lidocaine 1 each 03/21/21 19:39 Lidocaine 5% Transdermal Patch TP 03/21/21 19:40 ONCE ONE Sodium Chloride 50 ml 03/21/21 18:24 03/21/21 18:25 0.9 % Sodium Chloride 50 Ml Vial IV 03/21/21 18:25 50 ml ONCE ONE Administration Sodium Chloride 10 ml 03/21/21 18:24 03/21/21 18:25 Sodium Chloride 0.9% 10ml Syr (Rad Only) IV 03/21/21 18:25 10 ml ONCE ONE Administration ORDERS Category Date Time Status Troponin I Q3H Lab 03/21/21 20:04 Received Troponin I Q3H Lab 03/21/21 23:15 Ordered - CT Data CT Scan: Head Time Received: 17:[address] Reviewed: Yes: I have reviewed the patient's CT results, I have viewed the radiologist's interpretation Preliminary Findings: Normal/NAD - ANKITA Score for Non-Stemi Age of Patient: 30-39 years old Heart Rate: 70-89 bpm Systolic Blood Pressure: 120-139 mmhg Serum Creatinine: 0.40-0.79 mg/dl CHF Killip Class: I-No CHF Other Risk Factors: None Non-Stemi Risk Score: 55 Medical Decision Narrative: Upon presentation, patient is hemodynamically stable and non-toxic appearing. Patient presents with persistent left jaw, neck pain for prior ED visit yesterday. Repeat labs including CBC, CMP, troponins were obtained. However new differential diagnosis includes carotid artery dissection, stenosis, soft tissue mass. CT head, CTA head and neck were obtained. I reviewed labs and images. Patient's labs were grossly nonactionable. Patient's initial troponin was negative. Patient also had troponins that were negative yesterday. Patient CMP
[2021-03-21 20:36] LABS: Troponin I < 0.01 ng/ml (0.00-0.034)
[2021-03-21 21:48] VITALS: BP 127/81; PULSE 84; RESP 16; TEMP 36.9; O2SAT 99
== END 2021-03-21 21:50 | disposition home or self-care (01) ==
PROVIDERS: Emergency Provider Emergency Medicine; PCP Pediatrics
DX: R07.9 Chest pain, unspecified (principal); I10 Essential (primary) hypertension; F41.9 Anxiety disorder, unspecified; E66.01 Morbid (severe) obesity due to excess calories; Z68.43 Body mass index [BMI] 50.0-59.9, adult
CPT/HCPCS: 70450; 70496; 70498; 80053; 84484; 85025; 93005; 99282; 99283; Q9967

== ENCOUNTER → 2021-03-22 12:09 | Outpatient (CLI) | payer MEDICAID, SELFPAY | PROVIDERS: PCP Pediatrics; Visit Provider Urology | DX: R07.9 Chest pain, unspecified (principal); R06.00 Dyspnea, unspecified; R00.2 Palpitations; R94.31 Abnormal electrocardiogram [ECG] [EKG]; R60.9 Edema, unspecified; I10 Essential (primary) hypertension; M32.9 Systemic lupus erythematosus, unspecified; E66.01 Morbid (severe) obesity due to excess calories; Z68.43 Body mass index [BMI] 50.0-59.9, adult | CPT/HCPCS: 93270 ==

== ENCOUNTER → 2021-04-06 10:00 | Outpatient (CLI) | payer MEDICAID, SELFPAY ==
--- NOTE | 2021-04-06 10:01 | CA_ITS ---
APPROVED REPORT EXAM: Comprehensive 2D, Doppler, and color-flow Echocardiogram Director Television News: Jazz Plascencia CRT Ht: 11 ft 7 in Wt: 382lbs BSA: 4.52 BP: 110/70 mmHg Indications: Abnormal ECG, Palpitations, Hypertension/HDD, Lupus, CP, SOB 2D Dimensions LVOT 2.01 cm (M/F) 1.5-2.5 LA Volume 53.40 mL LA Volume Index 20.10 mL/m2 (M/F) 16-34 M-Mode Dimensions LA Diam 4.58 cm (1.9-4.0) LVDd 5.20 cm (3.5-5.7) Ao Diam 3.49 cm (2.0-3.7) LVDs 3.08 cm (3.5-5.7) IVSd 0.97 cm (0.6-1.1) PWd 1.01 cm (0.6-1.1) EF (Teich) 71.20% FS 40.80% EDV (Teich) 129.50 mL TAPSE 1.79 (<1.7) ESV (Teich) 37.30 mL LV Diastology E Decel Time 237.00 (160-240 msec) E/A Ratio 1.13 MED E' 8.60 (< 7 cm/sec) MED A' 10.50 cm/s E'/MED E' Ratio 10.31 (>14) LAT E' 7.60 (<10 cm/sec) LAT A' 10.40 cm/s E/LAT E' Ratio 11.67 (>14) Aortic Valve AO Peak GR. 9.10 mmHg Mitral Valve MV A Velocity 79.00 (40-130 cm/s) E/A Ratio 1.13 MV Decel. Time 237.00 (160-240 ms) Tricuspid Valve TR P. Velocity 172.00 cm/s RAP Estimate 10.00 mmHg RVSP 21.80 mmHg Left Ventricle Technically difficult study, endocardial surface a very poorly visualized, left atrium is mildly enlarged, left ventricle is normal size, visually estimated ejection fraction 55% with no regional wall motion abnormality, endocardial surfaces are very poorly visualized. Diastolic parameters are inconclusive in the study. Right Ventricle Right atrium and right ventricle are normal size and contractility. Aortic Valve Aortic valve is minimally thickened and fibrosed, there is no aortic stenosis or aortic insufficiency. Mitral Valve Mitral valve grossly normal, there is trace mitral regurgitation. Tricuspid Valve Tricuspid valve grossly normal, there is trace tricuspid regurgitation, tricuspid regurgitation jet velocity is inadequate for calculation of the right ventricular systolic pressure. Pulmonic Valve Pulmonic valve is poorly visualized. Great Vessels Aortic root is normal size. Pericardium No significant pericardial effusion noted. Conclusion 1. Normal left ventricular size, preserved left ventricular systolic function, visually estimated ejection fraction 55% with no regional wall motion abnormality, diastolic parameters are inconclusive in the study, endocardial surfaces are very poorly visualized. 2. Trace mitral and tricuspid regurgitation. 3. No significant pericardial effusion noted. Electronically signed by : Fred Persaud, 04/06/2021 19:21:22
== END ==
PROVIDERS: PCP Pediatrics; Visit Provider Urology
DX: R06.00 Dyspnea, unspecified (principal); R07.9 Chest pain, unspecified; R00.2 Palpitations; R94.31 Abnormal electrocardiogram [ECG] [EKG]; M32.9 Systemic lupus erythematosus, unspecified; I10 Essential (primary) hypertension; E66.01 Morbid (severe) obesity due to excess calories; Z68.43 Body mass index [BMI] 50.0-59.9, adult
CPT/HCPCS: 93306

== ENCOUNTER 2021-04-26 09:37 | Outpatient (CLI) | payer MEDICAID, SELFPAY ==
[2021-04-26] VITALS (7 sets, daily range): BP systolic 125–143; BP diastolic 71–89; PULSE 81–86; RESP 18; TEMP 36.2; O2SAT 98–99; BMI 60.0
== END 2021-04-26 12:05 | disposition home or self-care (01) ==
LOC: INF 09:37
DX: M32.9 Systemic lupus erythematosus, unspecified (principal)
CPT/HCPCS: 96413

== ENCOUNTER → 2021-05-05 10:41 | Outpatient (CLI) | payer MEDICAID, SELFPAY ==
--- NOTE | 2021-05-05 10:41 | CA_ITS ---
APPROVED REPORT Right Lower Extremity Venous Study for DVT. Service Order Clerk: CT Indications Lower Extremity Pain: Right Lower Extremity Edema: Right edema Risk Factors Obesity Vein Imaging CFV (R): compressive, spontaneous, phasic, augmentation SFJ (R): compressive, spontaneous, phasic, augmentation FEM (R): compressive, spontaneous, phasic, augmentation POP (R): compressive, spontaneous, phasic, augmentation DFV (R): compressive, spontaneous, phasic, augmentation PTV (R): compressive, spontaneous, phasic, augmentation GSV (R): compressive, spontaneous, phasic, augmentation SSV (R): compressive, spontaneous, phasic, augmentation Peroneals (R):compressive, spontaneous, phasic, augmentation GAS (R): compressive, spontaneous, phasic, augmentation Findings RLE negative for DVT/SVT. Vessels fully compressible No reflux noted. Conclusion RLE negative for DVT/SVT. Vessels fully compressible No reflux noted. Electronically signed by : Raji Romero MD 05/05/2021 16:50:14
== END ==
PROVIDERS: PCP Pediatrics; Visit Provider Nurse Practitioner Family
DX: R07.9 Chest pain, unspecified (principal); R60.0 Localized edema; R94.31 Abnormal electrocardiogram [ECG] [EKG]; E66.01 Morbid (severe) obesity due to excess calories; Z68.44 Body mass index [BMI] 60.0-69.9, adult
CPT/HCPCS: 93971

== ENCOUNTER 2021-05-10 08:47 | Outpatient (CLI) | payer MEDICAID, SELFPAY ==
[2021-05-10 10:18] VITALS: BP 120/70; PULSE 61; RESP 18; O2SAT 98
[2021-05-10 10:35] VITALS: BP 125/75; PULSE 60; RESP 18
[2021-05-10 10:50] VITALS: BP 132/68; PULSE 57; RESP 18
[2021-05-10 11:05] VITALS: BP 125/72; PULSE 57; RESP 18
[2021-05-10 11:31] VITALS: BP 131/75; PULSE 58; RESP 18
== END 2021-05-10 11:31 | disposition home or self-care (01) ==
LOC: INF 08:49
DX: M32.9 Systemic lupus erythematosus, unspecified (principal)
CPT/HCPCS: 96413

== ENCOUNTER 2021-05-28 02:09 | Emergency (ER) | payer MEDICAID, SELFPAY ==
[2021-05-28 02:09] VITALS: BP 147/72; PULSE 73; RESP 18; TEMP 37.1; O2SAT 100; BMI 59.5
--- NOTE | 2021-05-28 02:09 | ECG_ITS ---
APPROVED REPORT Exam: Resting ECG HR:70 bpm ECG Measurements Heart Rate 70 AXES ME 154 P 35 QRSd 100 QRS 30 QT 420 T 4 QTc 453 Conclusion Normal sinus rhythm Nonspecific ST and T wave abnormality Abnormal ECG Electronically signed by : Perez Colon MD 05/28/2021 16:42:51
--- NOTE | 2021-05-28 02:15 | XR_ITS ---
PROCEDURE INFORMATION: Exam: XR Chest Exam date and time: 05/28/2021 2:15 AM Age: 35 years old Clinical indication: Sternal or substernal pain and right-sided; Additional info: Chest pain TECHNIQUE: Imaging protocol: XR of the chest. Views: 2 views. COMPARISON: CR XR CHEST 2V 03/20/2021 8:11 PM FINDINGS: Lungs: No airspace consolidation. Mild central vascular congestion without overt pulmonary edema. Unchanged calcified granuloma in the right lower lobe. Pleural spaces: No pleural effusion. No pneumothorax. Heart/Mediastinum: Mild cardiomegaly is unchanged. Bones/joints: Mild chronic anterior wedging of several midthoracic vertebral bodies is unchanged. IMPRESSION: No acute finding. No significant change since 03/20/2021.
--- NOTE | 2021-05-28 02:21 | HMH.EDGENADL ---
ED Disposition Clinical Impression: Atypical chest pain, Chest pain Disposition: Home, Self-Care Condition on Discharge: Good Additional Instructions: Follow-up with your primary care physician. Return to the emergency department for any new or concerning symptoms. Referrals: Real Whitney MD [Primary Care Provider] - - Critical Care Critical Care Time: No Attestation: On , the high probability of a clinically significant, sudden or life threatening deterioration of the following system(s) required my full and direct attention, intervention and personal management. The time I documented below is in addition to time spent performing reported procedures but includes the following listed in this critical care notation. Medical Decision Making - Medical Records Medical records reviewed: Yes: I reviewed the patient's medical records. - Davy Inquiry Pt receiving controlled substance: No Vital Signs: 05/28/21 02:09 05/28/21 03:09 05/28/21 03:33 Temperature 98.7 F Temperature Source Oral Pulse Rate 65 63 Pulse Rate [Right Radial] 73 Respiratory Rate 18 Blood Pressure 111/53 L 105/53 L Blood Pressure [Right Arm] 147/72 H Blood Pressure Mean 83 84 Blood Pressure Mean [Right Arm] 97 Blood Pressure Source [Right Arm] Automatic Cuff Blood Pressure Position [Right Arm] Sitting 02 Sat by Pulse Oximetry 100 99 99 Oxygen Delivery Method Room Air 05/28/21 04:30 05/28/21 05:01 Temperature Temperature Source Pulse Rate 69 65 Pulse Rate [Right Radial] Respiratory Rate Blood Pressure 125/75 126/70 Blood Pressure [Right Arm] Blood Pressure Mean 91 87 Blood Pressure Mean [Right Arm] Blood Pressure Source [Right Arm] Blood Pressure Position [Right Arm] 02 Sat by Pulse Oximetry 100 97 Oxygen Delivery Method - Lab Data Lab results reviewed: Yes: I reviewed the patient's lab results. Lab Results 05/28/21 02:17: SARS-CoV-2 (PCR) Not detected, Influenza A Untype (PCR) Not detected, Influenza Type B (PCR) Not detected 05/28/21 02:29: WBC 7.8, RBC 4.96, Hgb 14.2, Hct 43.3, MCV 87.2, MCH 28.7, MCHC 32.9, RDW 13.8, Plt Count 363, MPV 8.0, Neut % (Auto) 59.0, Lymph % (Auto) 29.1, [place] % (Auto) 6.3, Eos % (Auto) 4.9, Baso % (Auto) 0.7, Neut # (Auto) 4.6, Lymph # (Auto) 2.3, [place] # (Auto) 0.5, Eos # (Auto) 0.4, Baso # (Auto) 0.1 05/28/21 03:07: Sodium 140, Potassium 4.0, Chloride 108 H, Carbon Dioxide 25, Anion Gap 11.0, BUN 16, Creatinine 0.60, Estimated Creat Clear 126, Estimated GFR 113, Est GFR ( Amer) 137, Glucose 105 H, Calcium 8.5, Troponin I < 0.01 05/28/21 05:21: Troponin I < 0.01 Result diagrams: 05/28/21 02:29 05/28/21 03:07 Orders (Tests/Meds): ED MEDICATIONS Discontinued Medications Generic Name Dose Route Start Last Admin Trade Name Freq PRN Reason Stop Dose Admin Ketorolac Tromethamine 15 mg 05/28/21 02:28 05/28/21 02:34 Ketorolac 30mg/Ml Vial IV 05/28/21 02:29 15 mg ONCE ONE Administration ORDERS Category Date Time Status Troponin I Q3H Lab 05/28/21 08:30 Ordered - ANKITA Score for Non-Stemi Age of Patient: 30-39 years old Heart Rate: 70-89 bpm Systolic Blood Pressure: 140-159 mmHg Serum Creatinine: 0.40-0.79 mg/dl CHF Killip Class: I-No CHF Other Risk Factors: None Non-Stemi Risk Score: 45 Medical Decision Narrative: Patient is a 35-year-old female presenting to emergency department with chief complaint of chest pain/heart palpitations. Differential diagnosis includes ACS, pneumonia, electrolyte abnormality, palpitations, COVID-19 among others. This plan to order CBC, CMP, troponin, chest x-ray, EKG. Patient EKG showed normal sinus rhythm with no abnormality. Patient was complaining of headache will give Toradol. CBC, CMP, both troponins were within normal limits. Chest x-ray showed no acute changes, as compared to the patient's previous chest x-ray. Patient was negative for Covid 19. General Adult HPI - Genera
[2021-05-28 02:22] LABS: Coronavirus 19, PCR Not Detected (NotDetected); Influenza A, PCR Not Detected (NotDetected); Influenza B, PCR Not Detected (NotDetected)
[2021-05-28 02:37] LABS: Basophils # 0.1 K/mm3 (0-0.2); Basophils % 0.7 % (0.1-2.0); Eosinophils # 0.4 K/mm3 (0.0-0.4); Eosinophils % 4.9 % (0.1-12.0); Hematocrit 43.3 % (37.0-47.0); Hemoglobin 14.2 g/dL (12.2-16.2); Lymphocytes # 2.3 K/mm3 (0.7-4.5); Lymphocytes % 29.1 % (10-50); Mean Corpuscular HGB Conc 32.9 g/dL (31.8-35.4); Mean Corpuscular Hemoglobin 28.7 pg (27.0-31.2); Mean Corpuscular Volume 87.2 fl (81-99); Monocytes # 0.5 K/mm3 (0.1-1.0); Monocytes % 6.3 % (1.7-9.3); Neutrophils # 4.6 K/mm3 (1.8-7.8); Platelet Count 363 K/mm3 (142-424); Red Blood Count 4.96 M/mm3 (4.20-5.40); Red Cell Distribution Width 13.8 % (11.5-17.5); White Blood Count 7.8 K/mm3 (4.8-10.8)
[2021-05-28 03:09] VITALS: BP 111/53; PULSE 65; O2SAT 99
[2021-05-28 03:19] LABS: Chloride 108 mmol/L (98-107); Sodium 140 mmol/L (136-145)
[2021-05-28 03:22] LABS: Blood Urea Nitrogen 16 mg/dl (7-17); Creatinine Clearance Estimated 126 mL/min (50-200); Estimated Glomerular Filt Rate 113 ml/min (>60); GFR (African American) 137 ML/MIN (>60)
[2021-05-28 03:23] LABS: Calcium 8.5 mg/dl (8.4-10.2); Carbon Dioxide 25 mmol/L (22.0-30.0); Glucose 105 mg/dl (74-100)
[2021-05-28 03:33] VITALS: BP 105/53; PULSE 63; O2SAT 99
[2021-05-28 03:38] LABS: Troponin I < 0.01 ng/ml (0.00-0.034)
[2021-05-28 04:30] VITALS: BP 125/75; PULSE 69; O2SAT 100
[2021-05-28 05:01] VITALS: BP 126/70; PULSE 65; O2SAT 97
[2021-05-28 05:48] LABS: Troponin I < 0.01 ng/ml (0.00-0.034)
[2021-05-28 05:58] VITALS: BP 115/72; PULSE 67; RESP 18; TEMP 37.1; O2SAT 97
== END 2021-05-28 06:03 | disposition home or self-care (01) ==
PROVIDERS: Emergency Provider Emergency Medicine; PCP Emergency Medicine
DX: R07.89 Other chest pain (principal); M79.7 Fibromyalgia; I10 Essential (primary) hypertension; Z20.822 Contact with and (suspected) exposure to COVID-19
CPT/HCPCS: 71046; 80048; 84484; 85025; 93005; 96374; 99283; C9803; U0003; U0005

== ENCOUNTER 2021-06-02 10:33 | Outpatient (CLI) | payer MEDICAID, SELFPAY ==
[2021-06-02 10:55] VITALS: BP 152/70; PULSE 76; RESP 17; TEMP 36.6; O2SAT 98
[2021-06-02 12:31] VITALS: BP 154/76; PULSE 71
[2021-06-02 13:25] VITALS: BP 127/82; PULSE 69; RESP 17; TEMP 36.7; O2SAT 97
== END 2021-06-02 13:29 | disposition home or self-care (01) ==
LOC: INF 10:35
PROVIDERS: PCP Pediatrics
DX: M32.9 Systemic lupus erythematosus, unspecified (principal)
CPT/HCPCS: 96365; 96413

== ENCOUNTER → 2021-06-08 11:25 | Outpatient (CLI) | payer MEDICAID, SELFPAY | PROVIDERS: PCP Pediatrics; Visit Provider Nurse Practitioner | DX: Z20.822 Contact with and (suspected) exposure to COVID-19 (principal) | CPT/HCPCS: C9803; U0003; U0005 ==

== ENCOUNTER → 2021-06-10 12:11 | Outpatient (CLI) | payer MEDICAID, SELFPAY | PROVIDERS: PCP Pediatrics; Visit Provider Nurse Practitioner | DX: Z20.822 Contact with and (suspected) exposure to COVID-19 (principal); U07.1 COVID-19 | CPT/HCPCS: C9803; U0003; U0005 ==

== ENCOUNTER 2021-06-15 09:03 | Emergency (ER) | payer MEDICAID, SELFPAY ==
[2021-06-15 09:12] VITALS: BP 138/69; PULSE 87; RESP 16; TEMP 36.8; O2SAT 99; BMI 60.0
[2021-06-15 09:27] VITALS: BP 152/80; PULSE 69; RESP 16; TEMP 36.7; O2SAT 99; BMI 60.0
--- NOTE | 2021-06-15 09:36 | HMH.EDUTC ---
[facility] [place] Clinical Impression: COVID-19 Otitis media Qualifiers: Otitis media type: suppurative Chronicity: acute Laterality: bilateral Recurrence: non-recurrent Spontaneous tympanic membrane rupture: without spontaneous rupture Qualified Code(s): H66.003 - Acute suppurative otitis media without spontaneous rupture of ear drum, bilateral Disposition: Home, Self-Care Condition on Discharge: Good Instructions: Middle Ear Infection, DI for COVID-19 (Suspected or Confirmed ), Preventing the Spread of Coronavirus Discharge Instructions Additional Instructions: Drink plenty of fluids. Take tylenol or ibuprofen for pain or fever. Take the medications as directed. Follow up with your regular doctor. GO TO THE ER FOR ANY WORSENING SYMPTOMS Prescriptions: methylPREDNISolone [Medrol] 4 mg PO DIRECTED 6 Days #21 packet Transmission Status: Received by [facility] # Azithromycin [Z-Tommy 250mg Tab*] 250 mg PO UD DOSE PK #6 tab Transmission Status: Received by [facility] # Referrals: David Webb MD [Primary Care Provider] - Time of Disposition: 09:46 Medical Decision Making - Medical Records Medical records reviewed: No: I reviewed the patient's medical records. - Davy Inquiry Pt receiving controlled substance: No Vital Signs: 06/15/21 09:12 06/15/21 09:27 06/15/21 09:48 Temperature 98.2 F 98.1 F 98.1 F Temperature Source Oral Oral Oral Pulse Rate 69 Pulse Rate [Right] 87 69 Respiratory Rate 16 16 16 Blood Pressure 152/80 H Blood Pressure [Right Arm] 138/69 152/80 H Blood Pressure Mean [Right Arm] 92 104 Blood Pressure Source Automatic Cuff Blood Pressure Source [Right Arm] Automatic Cuff Automatic Cuff Blood Pressure Position Sitting Blood Pressure Position [Right Arm] Sitting Sitting 02 Sat by Pulse Oximetry 99 99 Oxygen Delivery Method Room Air Room Air Room Air - Lab Data Lab results reviewed: Yes: I reviewed the patient's lab results. [facility] [place] - General Stated complaint: UTI, L ear ache Time Seen by Provider: 06/15/21 09:36 Mode of Arrival: Ambulatory Source of Information: Patient Limitations: No Limitations Description of Symptoms (Recalled from Triage Doc. by RN): less urine than normal. Fears uti. Ear pressure HEENT Symptoms (Recalled from RN notes): Yes Resp Symptoms (Recalled from RN notes): No Skin Symptoms (Recalled from RN notes): No MS Symptoms (Recalled from RN notes): No Functional Status (Recalled from RN notes): na - History of Present Illness Provider Complaint: She has had covid-19 for around the past 7 days. She has been vaccinated against covid-19. She is doing better with her covid-19 symptoms, but she is starting to have left ear pain and she has had some low back pain that makes her worry about a uti. She denies any burning or other urinary symptoms. - Related Data Home Medications Medication Instructions Recorded Confirmed Hydroxychloroquine Sulfate 400 mg PO DAILY 09/22/19 05/25/21 [Plaquenil 200mg tablet] Sertraline HCl [Zoloft] 150 mg PO DAILY 09/22/19 05/25/21 Diclofenac Sodium [Diclofenac 75mg 75 mg PO BID 11/30/20 05/25/21 Tab] cholecalciferol (vitamin D3) 125 125 mcg PO DAILY 03/22/21 05/25/21 mcg (5,000 unit) capsule ferrous sulfate 325 mg (65 mg 325 mg PO BID tab 04/12/21 05/25/21 iron) tablet Calcium Carbonate/Vitamin D3 1 each PO BID 04/26/21 05/25/21 [Calcium 600+D Softgel] belimumab 400 mg intravenous 400 mg IV Q4W 05/05/21 05/25/21 solution Previous Rx's Medication Instructions Recorded lisinopril 40 mg tablet 40 mg PO DAILY #30 tab 05/05/21 metoprolol succinate 25 mg 25 mg PO DAILY #30 tab 05/25/21 tablet,extended release 24 hr Azithromycin [Z-Tommy 250mg Tab*] 250 mg PO UD DOSE PK #6 tab 06/15/21 methylPREDNISolone [Medrol] 4 mg PO DIRECTED 6 Days #21 06/15/21 packet Allergies Allergy/AdvReac Type Severity Reaction Status D
[2021-06-15 09:48] VITALS: BP 152/80; PULSE 69; RESP 16; TEMP 36.7; O2SAT 99
== END 2021-06-15 09:49 | disposition home or self-care (01) ==
LOC: ER 09:15 → UTC 09:16
PROVIDERS: Emergency Provider Orthopaedic Surgery; PCP Pediatrics
DX: U07.1 COVID-19 (principal); H66.003 Acute suppurative otitis media without spontaneous rupture of ear drum, bilateral; I10 Essential (primary) hypertension
CPT/HCPCS: 99202; G0463

== ENCOUNTER 2021-06-30 06:19 | Outpatient (CLI) | payer MEDICAID, SELFPAY ==
--- NOTE | 2021-06-30 06:20 | NM_ITS ---
APPROVED REPORT Exam: Nuclear Stress Test Indication: Chest pain, SOB, Abnormal EKG, Obesity, HTN, Family history, Palpitations Patient Location: Outpatient Stress Tech: Perla Bingham [place] Tech:Georgie Kunz, ARRT, RT (R)(N) Ht: 5 ft 7 in Wt: 393 lbs Bra Size: DD HR: 77 bpm BP: 131/87 mmHg BSA: 2.69 m2 BMI: 61.5 History: Chest pain, SOB, Abnormal EKG, Obesity, HTN, Family history, Palpitations Procedure: Patient exercised on Tim protocol 8:59 minutes and sec, resting heart rate 77 bpm, resting blood pressure 131/87 mmHg, with exercise maximum heart rate achived was 159 bpm which is 86 % of the maximum predicted heart rate and blood pressure was 180/80 mmHg. Test was stopped due to SOA. Patient denied any complaint of chest pain. Patient has Adequate exercise capacity, achieved 6.3 METs of workload on treadmill, the blood pressure response to exercise was Adequate. Electrocardiogram Resting electrocardiogram shows sinus rhythm, with exercise there is less than 1.[address] segment depression noted from the baseline EKG. The EKG portion of the exercise Myoview is negative for ischemia. Cardiac Stress and Resting SPECT Images: Cardiac Stress and Resting SPECT images were obtained using technetium 99m Myoview 30.8 mCi stress and 9.96 mCi at rest. Gated SPECT for analysis of segmental wall motion and prone images were also obtained. Cardiac stress and resting SPECT images are suboptimal for interpretation, however the prone images show uniform myocardial activity without segmental perfusion abnormality, compared right ejection fraction in nonprone images is 47% with no regional wall motion abnormality. Conclusion: 1. The EKG portion of the exercise Myoview is negative for ischemia, patient has adequate exercise capacity achieved 6.3 METs of workload on treadmill, the blood pressure response to exercise was adequate. 2. This study is technically limited due to patient's body habitus, prone images show uniform myocardial activity without segmental perfusion abnormality, computer derived ejection fraction is 47% with no regional wall motion abnormality. 3. Likely normal exercise Myoview study. Electronically signed by : Fred Persaud MD 07/01/2021 15:37:02
--- NOTE | 2021-06-30 06:20 | CA_ITS ---
APPROVED REPORT Exam: Exercise Treadmill Technologist: Perla Bingham, Ht: 5 ft 7 in Wt: 395 lbs BSA: 2.70 m2 HR: 58 bpm BP: 141/89 mmHg Rhythm: NSR, PVC, LOW VOLTAGE QRS, NS T WAVE ABNS IN LEAD 3 AND ANT. LEADS Medical History Medical History: HTN Medications: Metoprolol,,,,, D3,,,,, Diclofenac,,,,, Sertraline,,,,, Hydroxychloroquine,,,,, MethylpredNISOLONE,,,,, Lisinopri/HCTZ,,,,, BeLIMUMAB,,,,, FerroOUS SULFATE,,,,, Allergies: MORPHINE Cardiac Risk Factors: HTN Stress Test Details Test: Manual Treadmill HR Resting HR: 77 bpm Max Heart Rate (APMHR): 184.421834 bpm Max HR Achieved: 159 bpm Target HR (85% APMHR): 156.353764 bpm % of APMHR: 86.41 Recovery HR: 99 bpm BP Resting BP: 131/87 mmHg Max BP: 180/80 mmHg Recovery BP: 137.0/83.0 mmHg ECG Resting ECG: NSR, PVC, LOW VOLTAGE QRS, NS T WAVE ABNS IN LEAD 3 AND ANT. LEADS Clinical Exercise duration: 08:59 min Highest Stage Achieved: Exercise capacity: 6.3 METs Stress ECG Conclusion EXERCISED 9:00 MIN TOTAL; 6 MINUTES IN STAGE 1 THEN IN MANUAL PROTOCOL. MAX SPEED WAS 2.5 MPH AND MAX GRADE WAS 10%. MAX HR: 159, % OF PM 86%. MAX BP: 180/80. METS 6.3. TEST STOPPED DUE TO SOA, FATIGUE. SYMPTOMS=MILD CHEST PRESSURE. OCC PVC. EXAGGERATION OF BASELINE T WAVE ABNS IN LEAD 3, BUT THE ST RESPONSE TO EXERCISE REMAINS WITHIN NORMAL. PROBABLY NORMAL GXT. MYOVIEW IMAGES REPORTED SEPARATELY. Test Summary REST . . . . . . . Standing REST 06:02 0.0 0.0 77 . 131/ 87 . . Stage 1 01:00 10.0 1.7 105 . . . . Stage 1 02:00 10.0 1.7 124 . . . . Stage 1 . . . . . . . Stage held Stage 1 03:00 10.0 1.7 138 . . . . Stage 1 04:00 10.0 1.7 144 . . . . Stage 1 05:00 10.0 1.7 147 . 180/ 80 . . Stage 1 06:00 10.0 1.7 146 . 180/ 80 . . Stage 1 . . . . . . . Protocol changed to Manual Treadmill Stage 1 07:00 10.0 2.0 154 . 180/ 80 . . Stage 1 08:00 10.0 2.5 153 . 180/ 80 . . Stage 1 . . . . . . . Stage resumed Stage 1 08:59 10.0 2.5 157 . 180/ 80 . Stop exercise at 08:59 RECOVERY 01:00 0.0 0.0 127 . . . . RECOVERY 02:00 0.0 0.0 120 . 165/ 60 . . RECOVERY 03:00 0.0 0.0 103 . 165/ 60 . . RECOVERY 04:00 0.0 0.0 100 . 160/ 65 . . RECOVERY 05:00 0.0 0.0 99 . 160/ 65 . . RECOVERY 05:56 0.0 0.0 98 . 137/ 83 . . Electronically signed by : Fred Persaud MD 07/01/2021 13:17:54
--- NOTE | 2021-06-30 08:23 | HMH.ITSHM ---
Current Home Medications as stated by this patient Rere Dsouza or technical support representative. []METOPROLOL LISINOPRIL FUROSEMIDE IRON VITAMIN D3 BELIMUMAB SERTRALINE PLAQUENIL DICLOFENAC CALCIUM
[2021-06-30 10:48] VITALS: BP 126/69; PULSE 77; RESP 18; TEMP 36.6; O2SAT 100
[2021-06-30 12:10] VITALS: BP 151/89; PULSE 73; RESP 18
== END 2021-06-30 12:10 | disposition home or self-care (01) ==
LOC: RAD 09:37 → INF 10:01
PROVIDERS: PCP Pediatrics; Visit Provider Nurse Practitioner Family
DX: M32.9 Systemic lupus erythematosus, unspecified (principal); R06.00 Dyspnea, unspecified; R07.9 Chest pain, unspecified; R00.2 Palpitations; R94.31 Abnormal electrocardiogram [ECG] [EKG]; E66.01 Morbid (severe) obesity due to excess calories; Z68.44 Body mass index [BMI] 60.0-69.9, adult
CPT/HCPCS: 78452; 93017; 96413; A9502

== ENCOUNTER → 2021-07-06 07:44 | Outpatient (CLI) | payer MEDICAID, SELFPAY ==
[2021-07-06 08:42] LABS: Chloride 107 mmol/L (98-107); Potassium 3.4 mmoL/L (3.5-5.1); Sodium 142 mmol/L (136-145)
[2021-07-06 08:45] LABS: Anion Gap 11.4 mEq/L (5-15); Blood Urea Nitrogen 10 mg/dl (7-17); Calcium 8.9 mg/dl (8.4-10.2); Carbon Dioxide 27 mmol/L (22.0-30.0); Estimated Glomerular Filt Rate 113 ml/min (>60); GFR (African American) 137 ML/MIN (>60); Glucose 96 mg/dl (74-100)
== END ==
PROVIDERS: Visit Provider Nurse Practitioner Family
DX: R06.00 Dyspnea, unspecified (principal); R07.9 Chest pain, unspecified; R00.2 Palpitations; R94.31 Abnormal electrocardiogram [ECG] [EKG]; E66.01 Morbid (severe) obesity due to excess calories; Z68.44 Body mass index [BMI] 60.0-69.9, adult
CPT/HCPCS: 36415; 80048

== ENCOUNTER → 2021-07-13 06:21 | Outpatient (CLI) | payer MEDICAID, SELFPAY ==
--- NOTE | 2021-07-13 06:21 | CT_ITS ---
PROCEDURE: CT ANGIO CORONARY ARTERY CLINCAL INDICATION: cp Chest pain COMPARISON: CT CT ABDOMEN PELVIS W CON from 11/30/2020 TECHNIQUE: IV Contrast: 170 mL Isovue 370 Gated helical acquisition performed. Axial, curved planar reformatted images and 3D images evaluated. This study is very limited secondary to body habitus and significant variation in the heart rate.. Patient's resting heart rate was in the 60s however, upon contrast injection the heart rate significantly varied ranging from 60-95 despite 15 mg of IV metoprolol. Two different runs were performed with persistent misregistration artifact. FINDINGS: There was normal coronary artery anatomy with no evidence malignant orientation of the coronary arteries. Grossly, the left main and LAD are unremarkable. The circumflex is a small branch with no occlusive changes apparent. The RCA is also fairly small with no occlusive changes evident. The RCA gives rise to the PDA with right-sided dominance to the inferior aspect of the interventricular septum. The ejection fraction is calculated at 41 percent however visually, the EF appears to be greater than 50 percent. Postsurgical changes are present from prior gastric bypass. Small left adrenal nodule once again noted incompletely imaged IMPRESSION: Very limited exam. Normal coronary artery anatomy. No major occlusive change apparent. Stenotic lesions are not excluded based on the quality of the exam. Dictated by: Raji Romero MD 07/15/2021 08:56 Raji Romero MD in [place] 07/15/2021 08:56
[2021-07-13 07:04] VITALS: BMI 61.4
[2021-07-13 07:31] LABS: Anion Gap 9.7 mEq/L (5-15); Blood Urea Nitrogen 9 mg/dl (7-17); Calcium 8.8 mg/dl (8.4-10.2); Carbon Dioxide 28 mmol/L (22.0-30.0); Chloride 107 mmol/L (98-107); Creatinine Clearance Estimated 126 mL/min (50-200); Estimated Glomerular Filt Rate 113 ml/min (>60); GFR (African American) 137 ML/MIN (>60); Glucose 92 mg/dl (74-100); Potassium 3.7 mmoL/L (3.5-5.1); Sodium 141 mmol/L (136-145)
== END ==
PROVIDERS: PCP Pediatrics; Visit Provider Nurse Practitioner Family
DX: R07.89 Other chest pain (principal); R06.00 Dyspnea, unspecified; E87.6 Hypokalemia
CPT/HCPCS: 75574; 80048; Q9967

== ENCOUNTER 2021-07-26 08:26 | Outpatient (CLI) | payer MEDICAID, SELFPAY ==
[2021-07-26 09:00] VITALS: BP 145/88; PULSE 84; RESP 18; TEMP 36.3; O2SAT 98
[2021-07-26 09:24] VITALS: BP 132/63; PULSE 93; RESP 18; O2SAT 98
[2021-07-26 09:54] VITALS: BP 130/78; PULSE 88; RESP 18; O2SAT 98
[2021-07-26 10:24] VITALS: BP 128/69; PULSE 91; RESP 18; O2SAT 97
[2021-07-26 10:42] VITALS: BP 115/73; PULSE 78; RESP 18; O2SAT 98
== END 2021-07-26 10:45 | disposition home or self-care (01) ==
LOC: INF 08:29
DX: M32.9 Systemic lupus erythematosus, unspecified (principal)
CPT/HCPCS: 96413

== ENCOUNTER 2021-08-25 07:51 | Outpatient (CLI) | payer MEDICAID, SELFPAY ==
[2021-08-25 09:30] VITALS: BP 148/70; PULSE 82; RESP 18; O2SAT 100
[2021-08-25 09:45] VITALS: BP 124/59; PULSE 70; RESP 16
[2021-08-25 10:00] VITALS: BP 114/58; PULSE 63; RESP 16
[2021-08-25 10:15] VITALS: BP 119/64; PULSE 60; RESP 16
[2021-08-25 10:30] VITALS: BP 122/73; PULSE 58; RESP 16
== END 2021-08-25 10:45 | disposition home or self-care (01) ==
LOC: INF 07:52
PROVIDERS: PCP Pediatrics
DX: M32.9 Systemic lupus erythematosus, unspecified (principal)
CPT/HCPCS: 96413

== ENCOUNTER → 2021-09-14 14:17 | Outpatient (CLI) | payer MEDICAID, SELFPAY | PROVIDERS: Visit Provider Nurse Practitioner | DX: Z20.822 Contact with and (suspected) exposure to COVID-19 (principal) | CPT/HCPCS: C9803; U0003; U0005 ==

== ENCOUNTER 2021-10-04 09:00 | Emergency (ER) | payer BC, MEDICAID, SELFPAY ==
[2021-10-04 09:10] VITALS: BP 138/67; PULSE 64; RESP 16; TEMP 36.6; O2SAT 97; BMI 60.7
[2021-10-04 09:39] LABS: UTC Influenza A Antigen Negative (Negative); UTC Influenza B Antigen Negative (Negative)
--- NOTE | 2021-10-04 09:54 | HMH.EDUTC ---
[facility] – [place] Disposition Clinical Impression: Lupus, COVID-19 Fatigue Qualifiers: Fatigue type: unspecified Qualified Code(s): R53.83 - Other fatigue Disposition: Home, Self-Care Condition on Discharge: Good Instructions: Systemic Lupus Erythematosus, DI for Systemic Lupus Erythematosus, Preventing the Spread of Coronavirus Discharge Instructions, DI for COVID-19 (Suspected or Confirmed ) Additional Instructions: Drink plenty of fluids. Take tylenol or ibuprofen for pain. Take the medications as directed. Follow up with your regular doctor. GO TO THE ER FOR ANY WORSENING SYMPTOMS Prescriptions: methylPREDNISolone [Medrol] 4 mg PO DIRECTED 6 Days #21 packet Transmission Status: Sent to [facility] #[id number] Referrals: David Webb MD [Primary Care Provider] - Forms: Work/School Release Time of Disposition: 10:01 Medical Decision Making - Medical Records Medical records reviewed: No: I reviewed the patient's medical records. - Davy Inquiry Pt receiving controlled substance: No Vital Signs: 10/04/21 09:10 10/04/21 10:07 Temperature 98 F 98 F Temperature Source Oral Pulse Rate 64 Pulse Rate [Left] 64 Respiratory Rate 16 16 Blood Pressure 138/67 Blood Pressure [Right Arm] 138/67 Blood Pressure Mean [Right Arm] 90 02 Sat by Pulse Oximetry 97 - Lab Data Lab results reviewed: Yes: I reviewed the patient's lab results. Lab Results 10/04/21 09:29: Influenza Type A Ag Negative, Influenza Type B Ag Negative 10/04/21 09:55: Group A Strep Rapid Negative Orders (Tests/Meds): ED MEDICATIONS Discontinued Medications Generic Name Dose Route Start Last Admin Trade Name Johnny PRN Reason Stop Dose Admin Methylprednisolone Sodium Succinate 125 mg 10/04/21 09:54 10/04/21 10:07 Methylprednisolone Sod Succ 125mg Vial IM 10/04/21 09:55 125 mg ONCE ONE Administration ORDERS Category Date Time Status Strep Screen Confirmation Stat Micro 10/04/21 09:55 Received [facility] [place] HPI - General Stated complaint: body aches, weakness Time Seen by Provider: 10/04/21 09:10 Mode of Arrival: Ambulatory Source of Information: Patient Limitations: No Limitations Description of Symptoms (Recalled from Triage Doc. by RN): pt c/o body aches and sever fatigue. pt states it could be a lupus flare up. however, she wants a covid and flu test. HEENT Symptoms (Recalled from RN notes): No Resp Symptoms (Recalled from RN notes): No Skin Symptoms (Recalled from RN notes): No MS Symptoms (Recalled from RN notes): No Functional Status (Recalled from RN notes): wnl - History of Present Illness Provider Complaint: She states that for the past 2 days she has had fatigue and multiple joint pain. She has a history of lupus and she feels like she is having a flare up of her symptoms. The treatment that she takes for lupus has been delayed because she is being switched from an oral medication to an injection and it has not been shipped to her yet. So she hasn't had any medication for her lupus in around 2 weeks. She denies any known sick contacts. - Related Data Home Medications Medication Instructions Recorded Confirmed Hydroxychloroquine Sulfate 400 mg PO DAILY 09/22/19 08/25/21 [Plaquenil 200mg tablet] Sertraline HCl [Zoloft] 150 mg PO DAILY 09/22/19 08/25/21 cholecalciferol (vitamin D3) 125 125 mcg PO DAILY 03/22/21 08/25/21 mcg (5,000 unit) capsule ferrous sulfate 325 mg (65 mg 325 mg PO BID tab 04/12/21 08/25/21 iron) tablet Calcium Carbonate/Vitamin D3 1 each PO BID 04/26/21 08/25/21 [Calcium 600+D Softgel] belimumab 400 mg intravenous 400 mg IV Q4W 05/05/21 08/25/21 solution Furosemide [Furosemide 20mg Tab*] 20 mg PO DAILY 07/13/21 08/25/21 Spironolactone [Spironolactone 25 mg PO DAILY 07/13/21 08/25/21 25mg Tablet] lisinopriL [Lisinopril] 40 mg PO DAILY 07/13/21 08/25/21 Previous Rx's Medication Instructions Recorded metoprolol succin
[2021-10-04 10:07] VITALS: BP 138/67; PULSE 64; RESP 16; TEMP 36.6
[2021-10-04 10:40] LABS: Strep Scrn Group A (Rapid) Negative (Negative)
== END 2021-10-04 10:12 | disposition home or self-care (01) ==
PROVIDERS: Emergency Provider Nurse Practitioner Family; PCP Pediatrics
DX: U07.1 COVID-19 (principal); M32.9 Systemic lupus erythematosus, unspecified; M79.7 Fibromyalgia; I10 Essential (primary) hypertension; Z79.899 Other long term (current) drug therapy
CPT/HCPCS: 87430; 87804; 96372; 99202; C9803; G0463; U0003; U0005

== ENCOUNTER 2021-10-17 15:06 | Emergency (ER) | payer BC, MEDICAID, SELFPAY ==
[2021-10-17 15:40] VITALS: BP 150/84; PULSE 77; RESP 18; TEMP 36.8; O2SAT 99; BMI 61.0
[2021-10-17 16:09] LABS: UTC Influenza A Antigen Negative (Negative); UTC Influenza B Antigen Negative (Negative)
--- NOTE | 2021-10-17 16:11 | HMH.EDUTC ---
[facility] [place] Disposition Clinical Impression: Viral syndrome Disposition: Home, Self-Care Condition on Discharge: Good Instructions: DI for Viral Syndrome, DI for COVID-19 (Suspected or Confirmed ), Preventing the Spread of Coronavirus Discharge Instructions Additional Instructions: *Monitor Temp, Over the counter Motrin or Tylenol as directed/as needed Tylenol every 4 hours and Motrin every 6 hours (as long as your family doctor has told you that you can take it) for fever or pain. and straight to ER if unable to lower temp less than 101.0 after medication given *Warm salt water gargles may help to soothe the throat *Throat Lozenges *Warm fluids like tea with honey may help to soothe the throat *Sleep elevated *Humidifier/Vaporizer Follow up IMMEDIATELY for new or worsening symptoms or no Noticeable improvement over the next 48-72 hours. 911 for difficulty breathing or swallowing You were tested for today for COVID19 your test result should be back in the next 24-72 hours, you may check your results on the [facility] [employer] Portal if you have trouble logging on you may call support If you are positive someone from the hospital will be calling you Make sure to take your Vitamins Vit. C Vit D and Zinc if you can take them Referrals: David Webb MD [Primary Care Provider] - As needed Forms: Work/School Release Time of Disposition: 16:19 Medical Decision Making - Davy Inquiry Pt receiving controlled substance: No Davy was queried for this patient: No Vital Signs: 10/17/21 15:40 10/17/21 16:31 Temperature 98.3 F 98.3 F Temperature Source Oral Pulse Rate 77 Pulse Rate [Right Brachial] 77 Respiratory Rate 18 18 Blood Pressure 150/84 H Blood Pressure [Right Arm] 150/84 H Blood Pressure Mean [Right Arm] 106 Blood Pressure Source [Right Arm] Automatic Cuff Blood Pressure Position [Right Arm] Sitting 02 Sat by Pulse Oximetry 99 Oxygen Delivery Method Room Air - Lab Data Lab results reviewed: Yes: I reviewed the patient's lab results. Lab Results 10/17/21 15:58: Influenza Type A Ag Negative, Influenza Type B Ag Negative Orders (Tests/Meds): ORDERS Category Date Time Status Covid-19 Nasal PCR ([facility]) Routine Lab 10/17/21 15:50 Received [facility] [place] HPI - General Stated complaint: sore throat fatigue FLORES fever Time Seen by Provider: 10/17/21 16:11 Mode of Arrival: Ambulatory Source of Information: Patient Limitations: No Limitations Description of Symptoms (Recalled from Triage Doc. 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 States that today she still wasnt feeling well and she wanted to come in and get checked and tested - Related Data Home Medications Medication Instructions Recorded Confirmed Hydroxychloroquine Sulfate 400 mg PO DAILY 09/22/19 08/25/21 [Plaquenil 200mg tablet] Sertraline HCl [Zoloft] 150 mg PO DAILY 09/22/19 08/25/21 cholecalciferol (vitamin D3) 125 125 mcg PO DAILY 03/22/21 08/25/21 mcg (5,000 unit) capsule ferrous sulfate 325 mg (65 mg 325 mg PO BID tab 04/12/21 08/25/21 iron) tablet Calcium Carbonate/Vitamin D3 1 each PO BID 04/26/21 08/25/21 [Calcium 600+D Softgel] belimumab 400 mg intravenous 400 mg IV Q4W 05/05/21 08/25/21 solution Furosemide [Furosemide 20mg Tab*] 20 mg PO DAILY 07/13/21 08/25/21 lisinopriL [Lisinopril] 40 mg PO DAILY 07/13/21 08/25/21 Previous Rx's Medication Instructions Recorded metoprolol succinate 25 mg 25 mg PO DAILY #30 tab 05/25/21 tab
[2021-10-17 16:31] VITALS: BP 150/84; PULSE 77; RESP 18; TEMP 36.8; O2SAT 99
== END 2021-10-17 16:35 | disposition home or self-care (01) ==
PROVIDERS: Emergency Provider Nurse Practitioner; PCP Pediatrics
DX: R50.9 Fever, unspecified (principal); Z20.822 Contact with and (suspected) exposure to COVID-19; B34.9 Viral infection, unspecified
CPT/HCPCS: 87804; 99202; C9803; G0463; U0003; U0005

== ENCOUNTER 2021-11-24 09:48 | Emergency (ER) | payer BC, MEDICAID, SELFPAY ==
[2021-11-24 10:00] VITALS: BP 153/105; PULSE 69; RESP 18; TEMP 36.7; O2SAT 100; BMI 61.0
--- NOTE | 2021-11-24 10:23 | CT_ITS ---
FINAL REPORT CLINICAL HISTORY: headache patient states she had a recent neck xray that showed a soft tissue mass and she has been waiting on f/u, that exam was done at another facility COMPARISON: March 21, 2021 FINDINGS: Axial images of the head were obtained without contrast. Coronal reformatted images were also obtained.This study was performed with techniques to keep radiation doses as low as reasonably achievable (ALARA). Individualized dose reduction techniques using automated exposure control or adjustment of mA and/or kV according to the patient's size were employed. There is no evidence of intracranial hemorrhage or mass. The ventricular size is within normal limits. There is no evidence of shift of the midline structures. No abnormal extra axial fluid collection is identified. No skull abnormality is seen on the bone window images. Note is made of multiple dural calcifications which are stable. There is partial opacification of the right maxillary sinus with right maxillary wall thickening which is consistent with chronic sinusitis. There is opacification of several right ethmoid air cells. IMPRESSION: No acute intracranial abnormality. Right ethmoid and maxillary sinusitis, slightly improved. Reviewed, Interpreted and Dictated by Hernán Bagley III, MD Transcribed by Sridevi Akers Authenticated by Hernán Bagley III, MD on 11/24/2021 11:21:29 AM [facility]
--- NOTE | 2021-11-24 10:23 | PC.NURSE ---
notified rad of CT order
--- NOTE | 2021-11-24 10:27 | PC.NURSE ---
pt to CT
--- NOTE | 2021-11-24 10:27 | PC.NURSE ---
patient to radiology with industrial radiographer; pt is ambulatory
[2021-11-24 11:00] VITALS: BP 136/78; PULSE 60; RESP 20; O2SAT 100
--- NOTE | 2021-11-24 11:04 | HMH.EDGENADL ---
ED Disposition Clinical Impression: Paresthesias Headache Qualifiers: Headache type: unspecified Headache chronicity pattern: acute headache Intractability: intractable Qualified Code(s): R51.9 - Headache, unspecified Disposition: Home, Self-Care Condition on Discharge: Good Instructions: DI for Headache Additional Instructions: Tylenol, ibuprofen, or Fioricet as needed for headache. Additional instructions for HEADACHE: See your physician as soon as possible for further evaluation. Return immediately if worsening headache, vomiting, problems with vision or speech, fever, numbness or weakness of the extremities, neck pain or stiffness. Additional instructions for CONTROLLED SUBSTANCES: You have been prescribed a medication that is a controlled substance. Controlled substances include pain medications known as opiates and sedative nerve medications known as benzodiazepines. Tramadol, fioricet, and gabapentin are also controlled substances. Some common opiates include: Codeine (such as Tylenol #3) Hydrocodone (Vicodin, Lortab, Lorcet, Sims) Oxycodone (Percocet, Percodan, Oxycodone, Oxy IR) Some common benzodiazepines include: Diazepam (Valium) Lorazepam (Ativan) Alprazolam (Xanax) Clonazepam (Klonopin) Oxazepam (Serax) All of these controlled substances are highly addictive and frequently abused. Misuse can and frequently does lead to addiction as well as overdose and . Medication should be stored in a locked cabinet or other secure storage unit. Do not store the medication in a motor vehicle. Short term supplies, 3 days or less, are prescribed because of the highly addictive nature of the medication. Any of the controlled substance medication NOT taken should be disposed of properly and NOT SAVED. The recommended method of disposing of unused medications is: Place the medicines in a sealable plastic bag. If the medicine is a solid, crush it or add water to dissolve it. Add something undesirable (cat litter, coffee grounds, etc.) Dispose of sealed bag in household trash Do not flush or pour unused medicines down a sink or drain. Controlled substances should not be shared, given away or sold. Because of the addictive nature and frequent abuse, these medications are sometimes stolen. These medications should be kept in a safe place where they cannot be stolen. Do not keep them in your car or purse. Lost or stolen prescriptions for controlled substances WILL NOT BE REFILLED in this emergency department, regardless of whether a police report was filed. Prescriptions: Butalb/Acetaminophen/Caffeine [Fioricet 50-300-40 mg Capsule] 1 each PO Q4HP PRN #8 cap PRN Reason: Headache Transmission Status: Received by [facility] #[id number] Referrals: David Webb MD [Primary Care Provider] - - Critical Care Critical Care Time: No Attestation: On 11/24/21, the high probability of a clinically significant, sudden or life threatening deterioration of the following system(s) required my full and direct attention, intervention and personal management. The time I documented below is in addition to time spent performing reported procedures but includes the following listed in this critical care notation. Medical Decision Making - Medical Records Medical records reviewed: Yes: I reviewed the patient's medical records. MR Comment: Reviewed previous head CT, head and neck CT angiogram reports from 03/21/2021. - Davy Inquiry Pt receiving controlled substance: No Vital Signs: 11/24/21 10:00 11/24/21 11:00 11/24/21 11:30 Temperature 98.0 F Temperature Source Oral Pulse Rate 60 64 Pulse Rate [Right Radial] 69 Respiratory Rate 18 20 18 Blood Pressure 136/78 156/101 H Blood Pressure [Right Arm] 153/105 H Blood Pressure Mean 102 119 Blood Pressure Mean [Right Arm] 121 Blood Pressure Source [Right Arm] Automatic Cuff Blood Pressure Position [Right Arm] Sitting
--- NOTE | 2021-11-24 11:29 | PC.NURSE ---
ED MD at
[2021-11-24 11:30] VITALS: BP 156/101; PULSE 64; RESP 18; O2SAT 99
--- NOTE | 2021-11-24 11:49 | PC.NURSE ---
[facility]
[2021-11-24 12:00] VITALS: BP 142/83; PULSE 58; RESP 20; O2SAT 100
[2021-11-24 12:24] LABS: Chloride 109 mmol/L (98-107); Sodium 139 mmol/L (136-145)
[2021-11-24 12:25] LABS: Potassium 5.5 mmoL/L (3.5-5.1)
[2021-11-24 12:27] LABS: Alanine Aminotransferase 27 U/L (12-78); Albumin/Globulin Ratio 1.3 (1.1-1.8); Alkaline Phosphatase 85 U/L (38-126); Anion Gap 9.5 mEq/L (5-15); Aspartate Amino Transferase 43 U/L (14-36); Blood Urea Nitrogen 13 mg/dl (7-17); Carbon Dioxide 26 mmol/L (22.0-30.0); Creatinine Clearance Estimated 125 mL/min (50-200); Estimated Glomerular Filt Rate 112 ml/min (>60); GFR (African American) 136 ML/MIN (>60); Globulin 3.2 g/dL (1.3-3.2); Total Protein,Serum 7.2 g/dl (6.3-8.2)
[2021-11-24 12:28] LABS: Calcium 7.9 mg/dl (8.4-10.2); Glucose 93 mg/dl (74-100)
[2021-11-24 12:48] LABS: Basophils # 0.1 K/mm3 (0-0.2); Basophils % 1.5 % (0.1-2.0); Eosinophils # 0.2 K/mm3 (0.0-0.4); Hematocrit 40.9 % (37.0-47.0); Hemoglobin 13.1 g/dL (12.2-16.2); Lymphocytes # 1.3 K/mm3 (0.7-4.5); Mean Corpuscular HGB Conc 32.1 g/dL (31.8-35.4); Mean Corpuscular Volume 90.3 fl (81-99); Monocytes # 0.4 K/mm3 (0.1-1.0); Monocytes % 7.9 % (1.7-9.3); Neutrophils # 3.1 K/mm3 (1.8-7.8); Neutrophils % 61.5 % (37.0-80.0); Platelet Count 350 K/mm3 (142-424); Red Blood Count 4.53 M/mm3 (4.20-5.40); Red Cell Distribution Width 14.2 % (11.5-17.5); White Blood Count 5.1 K/mm3 (4.8-10.8)
[2021-11-24 14:09] VITALS: BP 112/74; PULSE 78; RESP 16; TEMP 36.6; O2SAT 98
== END 2021-11-24 14:12 | disposition home or self-care (01) ==
PROVIDERS: Emergency Provider Emergency Medicine; PCP Pediatrics
DX: R20.2 Paresthesia of skin (principal); R51.9 Headache, unspecified; I10 Essential (primary) hypertension; R00.2 Palpitations; L93.0 Discoid lupus erythematosus
CPT/HCPCS: 70450; 80053; 85025; 96374; 99284

== ENCOUNTER 2021-12-06 09:03 | Emergency (ER) | payer BC, MEDICAID, SELFPAY ==
[2021-12-06 09:15] VITALS: BP 149/90; PULSE 83; RESP 18; TEMP 36.7; O2SAT 98; BMI 61.0
[2021-12-06 09:44] LABS: Apearance,Urine Clear (Clear); Bilirubin,Urine Negative (Negative); Blood, Urine Trace (Negative); Color,Urine Yellow (Yellow); Glucose,Urine (UA) Negative (Negative); Ketones,Urine Negative (Negative); PH,Urine 5.5 (5.0-8.5); Protein,Urine Negative (Negative); Specific Gravity, Urine 1.015 (1.005-1.030); UTC Leukocyte Esterase,Urine Negative (Negative); UTC Nitrate,Urine Negative (Negative); Urobilinogen,Urine 0.2 EU/dl (0.2)
[2021-12-06 09:45] LABS: UTC Influenza A Antigen Positive (Negative); UTC Influenza B Antigen Negative (Negative)
[2021-12-06 09:49] LABS: Strep Scrn Group A (Rapid) Negative (Negative)
--- NOTE | 2021-12-06 09:58 | HMH.EDUTC ---
[facility] [place] Disposition Clinical Impression: Influenza Disposition: Home, Self-Care Condition on Discharge: Good Instructions: Influenza, DI for Influenza -- Adult Additional Instructions: ? You chose not to start Tamiflu. ? Lots of rest ? Increase Fluids water, Gatorade, powerade, pedialyte,if /toddler/child ? Alternate Tylenol and / or ibuprofen as discussed for fever, aches, chills Follow up IMMEDIATELY with your family doctor for new or worsening Symptoms OR no noticeable improvement over the next 48-72 hours, 911 for difficulty or breathing ? You or your child area contagious until no fever, aches, chills for 24 hours with medication for symptoms ? Help Prevent the spread of influenza: ? Wash your hands often. Use soap and water. Wash your hands after you use the bathroom, change a child's diapers, or sneeze. Wash your hands before you prepare or eat food. Use gel hand cleanser that has 60% alcohol, when soap and water are not available. Do not touch your eyes, nose, or mouth unless you have washed your hands first. ? Cover your mouth when you sneeze or cough. Cough into a tissue or the bend of your arm. If you use a tissue, throw it away immediately and wash your hands. ? Clean shared items with a germ-killing bus cleaner. Clean table surfaces, doorknobs, and light switches. Do not share towels, silverware, and dishes with people who are sick. Wash bed sheets, towels, silverware, and dishes with soap and water. ? Wear a mask over your mouth and nose if you are sick. The face mask may help protect others from becoming infected with the flu. Wear the mask when in common areas of your home or if you seek care with a healthcare provider. ? Stay away from others if you are sick. Stay at home until 24 hours after your fever and symptoms are gone. Referrals: David Webb MD [Primary Care Provider] - As needed Forms: Work/School Release Time of Disposition: 10:06 Medical Decision Making - Davy Inquiry Pt receiving controlled substance: No Davy was queried for this patient: No Vital Signs: 12/06/21 09:15 Temperature 98.0 F Temperature Source Oral Pulse Rate [Right Brachial] 83 Respiratory Rate 18 Blood Pressure [Right Arm] 149/90 H Blood Pressure Mean [Right Arm] 109 Blood Pressure Source [Right Arm] Automatic Cuff Blood Pressure Position [Right Arm] Sitting 02 Sat by Pulse Oximetry 98 Oxygen Delivery Method Room Air - Lab Data Lab results reviewed: Yes: I reviewed the patient's lab results. Lab Results 12/06/21 09:30: Group A Strep Rapid Negative 12/06/21 09:33: Influenza Type A Ag Positive A, Influenza Type B Ag Negative 12/06/21 09:33: Urine Color Yellow, Urine Appearance Clear, Urine pH 5.5, Ur Specific [place] 1.015, Urine Protein Negative, Urine Glucose (UA) Negative, Urine Ketones Negative, Urine Blood Trace, Urine Nitrate Negative, Urine Bilirubin Negative, Urine Urobilinogen 0.2, Ur Leukocyte Esterase Negative Orders (Tests/Meds): ORDERS Category Date Time Status Strep Screen Confirmation Stat Micro 12/06/21 09:[address] [facility] [place] HPI - General Stated complaint: FLORES, sore throat, fever Time Seen by Provider: 12/06/21 09:58 Mode of Arrival: Ambulatory Source of Information: Patient Limitations: No Limitations Description of Symptoms (Recalled from Triage Doc. by RN): PATIENT C/O HEADACHE, COUGH, SORE THROAT, AND PAIN WITH URINATION X 1 WEEK HEENT Symptoms (Recalled from RN notes): Yes Resp Symptoms (Recalled from RN notes): No Skin Symptoms (Recalled from RN notes): No MS Symptoms (Recalled from RN notes): No Functional Status (Recalled from RN notes): WNL - History of Present Illness Provider Complaint: Patient state that she has been having body aches, chills, runny nose, headache and over all not feeling well State that she had a little burning with urination this morning and wasnt sure if she may have a UTI States that she has been around family THYMEber that has the flu - Relate
[2021-12-06 10:10] VITALS: BP 149/90; PULSE 83; RESP 18; TEMP 36.7; O2SAT 98
== END 2021-12-06 10:14 | disposition home or self-care (01) ==
PROVIDERS: Emergency Provider Nurse Practitioner; PCP Pediatrics
DX: J10.1 Influenza due to other identified influenza virus with other respiratory manifestations (principal); R00.2 Palpitations; R94.31 Abnormal electrocardiogram [ECG] [EKG]; R06.00 Dyspnea, unspecified; I10 Essential (primary) hypertension; D64.9 Anemia, unspecified; I49.9 Cardiac arrhythmia, unspecified; M19.90 Unspecified osteoarthritis, unspecified site; M79.7 Fibromyalgia; Z79.52 Long term (current) use of systemic steroids; Z88.5 Allergy status to narcotic agent; Z86.14 Personal history of Methicillin resistant Staphylococcus aureus infection; Z82.49 Family history of ischemic heart disease and other diseases of the circulatory system; Z80.9 Family history of malignant neoplasm, unspecified; Z83.3 Family history of diabetes mellitus
CPT/HCPCS: 81003; 87430; 87804; 99213; G0463

== ENCOUNTER 2021-12-09 17:50 | Emergency (ER) | payer BC, MEDICAID, SELFPAY ==
[2021-12-09 18:43] VITALS: BP 133/104; PULSE 77; RESP 15; TEMP 36.7; O2SAT 98; BMI 61.0
--- NOTE | 2021-12-09 18:50 | HMH.EDUTC ---
[facility] [place] Clinical Impression: Influenza A Disposition: Home, Self-Care Condition on Discharge: Good Instructions: Influenza, DI for Influenza -- Adult Additional Instructions: Drink plenty of fluids. Take tylenol or ibuprofen for pain or fever. Take the medications as directed. Follow up with your regular doctor. GO TO THE ER FOR ANY WORSENING SYMPTOMS Prescriptions: Promethazine/Dextromethorphan [Promethazine-Dm Syrup] 5 ml PO Q6HP PRN #240 ml PRN Reason: Cough Transmission Status: Received by [facility] # Ondansetron [Zofran 4mg ODT] 4 mg PO Q8HP PRN #20 tab PRN Reason: Nausea Transmission Status: Received by [facility] # methylPREDNISolone [Medrol] 4 mg PO DIRECTED 6 Days #21 packet Transmission Status: Received by [facility] # Azithromycin [Z-Tommy 250mg Tab*] 250 mg PO UD DOSE PK #6 tab Transmission Status: Received by [facility] # Referrals: David Webb MD [Primary Care Provider] - Forms: Work/School Release Time of Disposition: 19:23 Medical Decision Making - Medical Records Medical records reviewed: No: I reviewed the patient's medical records. - Dvay Inquiry Pt receiving controlled substance: No Vital Signs: 12/09/21 18:43 12/09/21 19:33 Temperature 98.1 F 98.1 F Temperature Source Oral Pulse Rate 77 Pulse Rate [Left Radial] 77 Respiratory Rate 15 15 Blood Pressure 133/104 H Blood Pressure [Left Arm] 133/104 H Blood Pressure Mean [Left Arm] 113 Blood Pressure Source [Left Arm] Automatic Cuff Blood Pressure Position [Left Arm] Sitting 02 Sat by Pulse Oximetry 98 Oxygen Delivery Method Room Air - Lab Data Lab results reviewed: Yes: I reviewed the patient's lab results. Lab Results 12/09/21 18:41: Group A Strep Rapid Negative 12/09/21 19:26: Urine Color Dark yellow, Urine Appearance Clear, Urine pH 6.0, Ur Specific [place] 1.030, Urine Protein 1+, Urine Glucose (UA) Negative, Urine Ketones Negative, Urine Blood Trace, Urine Nitrate Negative, Urine Bilirubin 1+ A, Urine Urobilinogen 1, Ur Leukocyte Esterase Negative Orders (Tests/Meds): ORDERS Category Date Time Status Covid-19 Nasal PCR ([facility]) Routine Lab 12/09/21 18:41 Received Strep Screen Confirmation Stat Micro 12/09/21 18:41 Received [facility] UTC HPI - General Stated complaint: flu positive, new onset loss of taste/smell, FLORES Time Seen by Provider: 12/09/21 18:50 Mode of Arrival: Ambulatory Source of Information: Patient Limitations: No Limitations Description of Symptoms (Recalled from Triage Doc. by RN): Pt c/o covid symptoms . Advises that chest hurts r/t coughing HEENT Symptoms (Recalled from RN notes): No Resp Symptoms (Recalled from RN notes): Yes (cough) Skin Symptoms (Recalled from RN notes): No MS Symptoms (Recalled from RN notes): No Functional Status (Recalled from RN notes): n/a - History of Present Illness Provider Complaint: She was diagnosed with influenza 3 days ago. She is back today because she is feeling worse. She has a cough, fever and she has lost her sense of smell. - Related Data Home Medications Medication Instructions Recorded Confirmed Hydroxychloroquine Sulfate 400 mg PO DAILY 09/22/19 11/18/21 [Plaquenil 200mg tablet] Sertraline HCl [Zoloft] 150 mg PO DAILY 09/22/19 11/18/21 cholecalciferol (vitamin D3) 125 125 mcg PO DAILY 03/22/21 11/18/21 mcg (5,000 unit) capsule ferrous sulfate 325 mg (65 mg 325 mg PO BID tab 04/12/21 11/18/21 iron) tablet Calcium Carbonate/Vitamin D3 1 each PO BID 04/26/21 11/18/21 [Calcium 600+D Softgel] belimumab 400 mg intravenous 400 mg IV Q4W 05/05/21 11/18/21 solution lisinopriL [Lisinopril] 40 mg PO DAILY 07/13/21 11/18/21 Previous Rx's Medication Instructions Recorded methylPREDNISolone [Medrol] 4 mg PO DIRECTED 6 Days #21 10/04/21 packet spironolactone 25 mg tablet See Rx Instructions .ROUTE 10/06/21 .
[2021-12-09 19:08] LABS: Strep Scrn Group A (Rapid) Negative (Negative)
[2021-12-09 19:27] LABS: Apearance,Urine Clear (Clear); Color,Urine Dark Yellow (Yellow)
[2021-12-09 19:28] LABS: Protein,Urine 1+ (Negative)
[2021-12-09 19:29] LABS: Blood, Urine Trace (Negative); Glucose,Urine (UA) Negative (Negative); Ketones,Urine Negative (Negative)
[2021-12-09 19:30] LABS: Bilirubin,Urine 1+ (Negative)
[2021-12-09 19:31] LABS: UTC Leukocyte Esterase,Urine Negative (Negative); UTC Nitrate,Urine Negative (Negative); Urobilinogen,Urine 1 EU/dl (0.2)
[2021-12-09 19:33] VITALS: BP 133/104; PULSE 77; RESP 15; TEMP 36.7; O2SAT 98
== END 2021-12-09 19:34 | disposition home or self-care (01) ==
PROVIDERS: Emergency Provider Nurse Practitioner Family; PCP Pediatrics
DX: J10.1 Influenza due to other identified influenza virus with other respiratory manifestations (principal); I10 Essential (primary) hypertension
CPT/HCPCS: 81003; 87430; 99213; C9803; G0463; U0003; U0005

== ENCOUNTER 2022-02-04 19:07 | Emergency (ER) | payer BC, MEDICAID, SELFPAY ==
--- NOTE | 2022-02-04 19:11 | XR_ITS ---
PROCEDURE INFORMATION: Exam: XR Left Foot Exam date and time: 02/04/2022 7:07 PM Age: 36 years old Clinical indication: Injury or trauma; Other: Kicked dog x 2 wks ago; Blunt trauma; Foot; Left; Additional info: Kicked something TECHNIQUE: Imaging protocol: XR Left foot. Views: 3 or more views. COMPARISON: No relevant prior studies available. FINDINGS: Bones/joints: Mild degenerative changes of the 1st metatarsophalangeal joint. Tiny plantar calcaneal spur. Degenerative changes also appreciated at the midfoot. There is no evidence of acutely displaced fractures. There is no evidence of joint dislocation. No aggressive osseous lesions. Soft tissues: There is no significant soft tissue swelling. IMPRESSION: No acute skeletal pathology.
[2022-02-04 19:15] VITALS: BP 134/90; PULSE 74; RESP 18; TEMP 36.7; O2SAT 97; BMI 61.5
--- NOTE | 2022-02-04 19:41 | HMH.EDUTC ---
[facility] – [place] Clinical Impression: Foot contusion Qualifiers: Encounter type: initial encounter Laterality: left Qualified Code(s): S90.32XA - Contusion of left foot, initial encounter Disposition: Home, Self-Care Condition on Discharge: Good Instructions: DI for Foot Pain Additional Instructions: *weight bearing as tolerated *RICE, Rest the extremity, Ice 15-20 minutes 3-4 times daily, Compress- wear the jordi wrap as discussed as much as possible to help reduce swelling and pain, Elevate the extremity when at rest *Jordi wrap is for support and help control swelling, use it except in the shower. Be sure that is not to tight but not to loose either *Elevate when resting *Ibuprofen 600-800mg every 6-8 hours as needed for pain an inflammation. If need something more can take Tylenol in between doses of Ibuprofen to help Immediately follow up with your family doctor for new or worsening of symptoms, or no noticeable improvement over the next 3-5 days Referrals: David Webb MD [Primary Care Provider] - As needed Time of Disposition: 19:54 Medical Decision Making - Davy Inquiry Pt receiving controlled substance: No Davy was queried for this patient: No Vital Signs: 02/04/22 19:15 Temperature 98.0 F Temperature Source Oral Pulse Rate [Right Brachial] 74 Respiratory Rate 18 Blood Pressure [Right Arm] 134/90 Blood Pressure Mean [Right Arm] 104 Blood Pressure Source [Right Arm] Automatic Cuff Blood Pressure Position [Right Arm] Sitting 02 Sat by Pulse Oximetry 97 Oxygen Delivery Method Room Air - Radiology Data #1 Image(s): Foot/Toes Image Reviewed: Yes I have reviewed radiologist's interpretation IMPRESSION: No acute skeletal pathology. [facility] [place] HPI - General Stated complaint: AO 01/13 injured L foot Time Seen by Provider: 02/04/22 19:41 Mode of Arrival: Ambulatory Source of Information: Patient Limitations: No Limitations Description of Symptoms (Recalled from Triage Doc. by RN): PATIENT C/O LEFT FOOT PAIN X 3 WEEKS. SHE STATES PAIN STARTED AFTER SHE KICKED HER DOG OFF OF THE BED HEENT Symptoms (Recalled from RN notes): No Resp Symptoms (Recalled from RN notes): No Skin Symptoms (Recalled from RN notes): No MS Symptoms (Recalled from RN notes): Yes Functional Status (Recalled from RN notes): WNL - History of Present Illness Provider Complaint: Patient states that she has been having pain in her left foot for about 3 weeks after she kicked her dog off the bed States that she has been walking on it ok but at times she has pain so tonight when it was still hurting she came in to get it checked out - Related Data Home Medications Medication Instructions Recorded Confirmed Hydroxychloroquine Sulfate 400 mg PO DAILY 09/22/19 11/18/21 [Plaquenil 200mg tablet] Sertraline HCl [Zoloft] 150 mg PO DAILY 09/22/19 11/18/21 cholecalciferol (vitamin D3) 125 125 mcg PO DAILY 03/22/21 11/18/21 mcg (5,000 unit) capsule ferrous sulfate 325 mg (65 mg 325 mg PO BID tab 04/12/21 11/18/21 iron) tablet Calcium Carbonate/Vitamin D3 1 each PO BID 04/26/21 11/18/21 [Calcium 600+D Softgel] belimumab 400 mg intravenous 400 mg IV Q4W 05/05/21 11/18/21 solution Previous Rx's Medication Instructions Recorded methylPREDNISolone [Medrol] 4 mg PO DIRECTED 6 Days #21 10/04/21 packet spironolactone 25 mg tablet See Rx Instructions .ROUTE 10/06/21 .COMPLEX #30 tablet metoprolol succinate 50 mg 50 mg PO DAILY #90 tab 11/18/21 tablet,extended release 24 hr Butalb/Acetaminophen/Caffeine 1 each PO Q4HP PRN #8 cap 11/24/21 [Fioricet 50-300-40 mg Capsule] furosemide 20 mg tablet See Rx Instructions .ROUTE 11/25/21 .COMPLEX #30 tablet Azithromycin [Z-Tommy 250mg Tab*] 250 mg PO UD DOSE PK #6 tab 12/09/21 Ondansetron [Zofran 4mg ODT] 4 mg PO Q8HP PRN #20 tab 12/09/21 Promethazine/Dextromethorphan 5 ml PO Q6HP PRN #240 ml 12/09/21 [Promethazine-Dm Syrup] methylPREDNISolone [Medrol]
[2022-02-04 20:40] VITALS: BP 134/90; PULSE 74; RESP 18; TEMP 36.7; O2SAT 97
== END 2022-02-04 20:47 | disposition home or self-care (01) ==
PROVIDERS: Emergency Provider Nurse Practitioner; PCP Pediatrics
DX: S90.32XA Contusion of left foot, initial encounter (principal); Z88.5 Allergy status to narcotic agent
CPT/HCPCS: 73630; 99212; G0463